=== PATIENT | male | born 1995 | race Caucasian/White ===

== ENCOUNTER 2020-04-03 15:28 | Outpatient (CLI) | payer OTHER ==
--- NOTE | 2020-04-03 17:33 | ULT ---
SOFT TISSUE ULTRASOUND NECK: 04/03/20 INDICATIONS: Neck mass. Directed soft tissue ultrasound of the right neck is performed to assess area of palpable concern. Th ere are enlarged lymph nodes identified in the right neck measuring up to 2.5 cm. Adenopathy is seen in the right supraclavicular region and right axilla. There is also adenopathy in the left supraclavi cular region. IMPRESSION: Evidence of pathologic adenopathy in the areas that are imaged by directed ultrasound. Consider furth er evaluation with CT neck with IV contrast to better characterize cervical adenopathy. POS: PARESH
== END 2020-04-03 15:29 | disposition home or self-care (01) ==
LOC: BICULT 15:28
PROVIDERS: ATTEND Physician Assistant
DX: R22.1 Localized swelling, mass and lump, neck (principal); R59.0 Localized enlarged lymph nodes
CPT/HCPCS: 76536

== ENCOUNTER 2020-04-04 13:05 | Outpatient (CLI) | payer OTHER ==
--- NOTE | 2020-04-04 14:47 | CT ---
EXAM: CT NECK SOFT TISSUE POST CONTRAST: HISTORY:Neck mass. Abnormal ultrasound. CT was recommended. COMPARISON:None CORRELATION:Soft tissue neck ultrasound 04/03/2020 FINDINGS: Brain parenchyma: No pathologic enhancement of the visualized brain parenchyma. Sinuses: Mild mucosal disease of the left maxillary sinus Orbits: Appropriate location of the ocular lenses. Symmetric attenuation the optic nerves and ocular rectus muscles. Retrobulbar fat is preserved. Nasopharynx:Adequate aeration. No mucosal abnormality. Oral cavity:Aerodigestive tract is patent. No mucosal abnormality. Limited evaluation of the oral cav ity due to dental amalgam artifact. Midline fatty raphae of the tongue is preserved. Nonspecific mild fullness of the palatine tonsils. No evidence of adenoid tonsillar hypertrophy. Hypopharynx: No mucosal abnormality. Epiglottis has a normal caliber. Preepiglottic fat is preserved .. Larynx: No mucosal abnormality with regards to the supraglottic, glottic and subglottic larynx. Paraspinal muscles: Symmetric attenuation of the paraspinal muscles and symmetric attenuation of the sternocleidomastoid muscles.. Parotid and salivary glands: Symmetric attenuation of the parotid and submandibular glands Vessels: No significant stenosis. Technique limits evaluation. Thyroid gland: Unremarkable. Spine: Vertebral body height is maintained. No fracture. No significant central canal stenosis or sig nificant neural foraminal narrowing. Limited evaluation due to technique. Lymph nodes: Markedly lymphadenopathy or dominant throughout the right neck. Enlarged right level 1 l ymph node measures 1.8 x 2.0 cm, enlarged right level 5 lymph node measures 2.2 x 3.2 cm, enlarged right supraclavicular lymph node measures 2.3 x 2.4 cm. Additional right and left neck and supraclavi cular lymphadenopathy is noted. Lung apices and upper mediastinum: No acute abnormality. IMPRESSION: 1. Markedly soft tissue neck lymphadenopathy. Primary consideration should be lymphoma until proven o therwise. Metastases from an occult primary cannot be entirely excluded. Ultrasound-guided biopsy can be performed. CODE T
[2020-04-04] MEDS ORDERED: Iopamidol-370 76% 500 ML 1 ML ONE (15:08)
== END 2020-04-04 13:06 | disposition home or self-care (01) ==
LOC: BICCT 13:05
PROVIDERS: ATTEND Physician Assistant
DX: R59.1 Generalized enlarged lymph nodes (principal)
CPT/HCPCS: 70491; Q9967

== ENCOUNTER 2020-04-15 06:59 | Day surgery (SDC) | payer OTHER ==
[2020-04-15] MEDS ORDERED: Tobramycin/Dexamethasone Ophth Oint 3.5 GM TUBE ONE (10:08)
[2020-04-15] MEDS ORDERED: Bacitracin Zinc Ointment 30 gm TUBE ONE (10:08)
[2020-04-15] MEDS ORDERED: Lidocaine 1% w/Epinephrine 1:100K 20 ML VIAL ONE (10:08)
[2020-04-15] MEDS ORDERED: Fentanyl 100 MCG/2 ML VIAL ONE ×2 (10:11→11:52)
[2020-04-15] MEDS ORDERED: Midazolam HCl 2 mg/2 ml Vial ONE (10:11)
[2020-04-15] MEDS ORDERED: Dexamethasone 20 MG/5 ML VIAL ONE (10:48)
[2020-04-15] MEDS ORDERED: Glycopyrrolate 0.2 MG/ML 5 ML SYRINGE ONE (10:48)
[2020-04-15] MEDS ORDERED: Ondansetron PF 4 MG/2 ML Vial ONE (10:48)
[2020-04-15] MEDS ORDERED: Lidocaine 1% PF 5 ML VIAL ONE (10:48)
[2020-04-15] MEDS ORDERED: Ketorolac Tromethamine 30 MG/ML VIAL ONE (10:48)
[2020-04-15] MEDS ORDERED: PROPOFOL 200 MG/20 ML VIAL ONE (10:48)
[2020-04-15] MEDS ORDERED: Rocuronium Bromide 10 MG/ML (10ML VIAL) ONE (10:48)
--- NOTE | 2020-04-15 13:44 | RAD ---
PORTABLE CHEST 1 VIEW: Date: 04/15/2020 Time: 1144 hours HISTORY: Status post lymph node excision. FINDINGS: The heart size is normal. No lobar consolidation, pneumothoraces, or pleural effusions are seen. IMPRESSION: No acute process. POS: AH
--- NOTE | 2020-04-16 14:21 | OP ---
DATE OF PROCEDURE: 04/15/2020 PREOPERATIVE DIAGNOSIS: Diffuse cervical and mediastinal lymphadenopathy. POSTOPERATIVE DIAGNOSIS: Diffuse cervical and mediastinal lymphadenopathy. PROCEDURES: Excisional lymph node biopsy, deep tissue. PERMIT: Procedures, benefits, and risks including those of bleeding, infection, injury from anesthesia, allergic reaction, scarring, damage to surrounding tissue, numbness, and alternatives were reviewed with the patient and family, who expressed understanding of the information. The consent form was signed and witnessed and a paper copy of the consent form is available for review in the paper chart. INDICATIONS: This is a 24-year-old male patient presenting with diffuse neck and mediastinal lymphadenopathy, denying any symptoms, presenting to the clinic with a CT scan showing lymphadenopathy and previous FNA suggestive of lymphoma. However, pathology requires more tissue to confirm diagnosis and subtyping of suggested lymphoma and the patient was brought to the operating room now for operative treatment. ASSISTANTS: None. FINDINGS: Diffuse cervical lymphadenopathy with palpable left-sided lymph node near the clavicle. DESCRIPTION OF OPERATION: The patient was brought to the operating room and laid supine on the operating room table. General endotracheal anesthesia was administered and the left enlarged lymph node was palpated near the clavicle and the area was prepped and draped in sterile fashion. 1% lidocaine with 1:100,000 epinephrine was injected over the mass and a marking pen was used to identify the largest lateral aspect of the mass and designed an incision parallel with the natural fold and skin creases. A 15 blade scalpel was used to make an incision through the epidermis and dermis down to the subcutaneous tissue and then Bovie electrocautery on a setting of 15 was then used to incise the subcutaneous tissue down through the platysma. After this incision was made, there was still a significant amount of subcutaneous fat overlying the mass, which was divided with blunt dissection with the use of a curved gently and bipolar electrocautery on a setting of 15 to divide the tissue overlying the mass and dissect down to the deep tissue space. Once the mass was seen and palpated, blunt dissection was used to remove the fibrous desmoplastic tissue around the mass, which was significant and adherent and significant time was used to dissect this tough tissue from surrounding the mass, which was significantly more than would be expected given the patient's presentation. Small vessels were cauterized with bipolar electrocautery and once the mass was dissected free superficially and circumferentially, a Guy was then placed on the surrounding fascial tissue of the mass and then blunt dissection again was used to dissect the deep tissue clear. Once this was dissected clear, the wound was then irrigated and then the deep space was closed in multiple layers with 4- 0 Vicryl deep stitches and then a buried subcutaneous stitch in the deep aspect of the dermis was then used to close and ligia the skin edges and then a superficial running continuous 4-0 Prolene was then used to close the skin edges together. Afterwards, bacitracin was placed on the wound and the patient was turned over to Anesthesia for emergence and the dissected mass, which was roughly 4-5 cm in diameter was sent fresh for lymphoma studies. Job ID: [id number] [facility]
== END 2020-04-15 13:50 | disposition home or self-care (01) ==
LOC: SDC 06:59
PROVIDERS: ATTEND Student in an Organized Health Care Education/Training Program
PROC: 07B20ZZ Excision of Left Neck Lymphatic, Open Approach (ICD-10-PCS; principal; 2020-04-15)
DX: C81.90 Hodgkin lymphoma, unspecified, unspecified site (principal); F41.9 Anxiety disorder, unspecified; F32.9 Major depressive disorder, single episode, unspecified; G47.30 Sleep apnea, unspecified
CPT/HCPCS: 71045; 88184; 88305; 88341; 88342; J1100; J1885; J2250; J2405; J2704; J3010

== ENCOUNTER 2020-04-29 08:22 | Outpatient (CLI) | payer OTHER ==
--- NOTE | 2020-04-29 11:01 | PET ---
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 Initial staging" COMPARISON: none TECHNIQUE: IV injection of F-18 fluorodeoxyglucose (FDG) dose: 12.1 mCi. PET scan and attenuation correction CT performed from skull base to proximal thighs. PET scan and attenuation correction CT thinner slices performed through head and neck. FINDINGS: SUV (standard uptake values) numbers given are maximum SUVs. QCLR used. Large number of bilateral the abnormally shaped and significantly enlarged cervical lymph nodes, righ t side significantly worse than left, involving levels 2, 3, 4, and 5, as well as unnamed lymph nodes. The following are some examples. 2.7 x 2.1 cm node abutting the tail of the right parotid gland and abutting the superior anterior lat eral surface of right sternocleidomastoid muscle. SUV 19.5. Slightly inferior to that, a 1.8 x 2.0 cm lateral superficial node with SUV 19.4. 1.4 x 1.3 cm right level 2A node SUV 15.0. 3.5 x 2.1 cm right level 5 lymph node SUV 9.9. 2.4 x 2.5 cm right far lateral supraclavicular level 5 node SUV 9.8. 1 x 1 cm left level 5A node SUV 4.8. Left level 5B supraclavicular 3 x 1.8 cm node SUV 8.1. A large number of far posterior bilateral lymph nodes at cervical thoracic junction including level 5 B nodes and additional nodes between bilateral shoulder muscles. For example, a 1.5 cm node close to the right scapula with SUV 13.1. The largest right axillary lymph node is the most lateral one, 5.9 x 3.6 cm, SUV 20.5. Inferior and medial to that, a 3 x 3.5 cm right axillary lymph node SUV 18.6. 2 x 1.5 cm lymph node adjacent to the posterior lateral edge of right shoulder muscles with SUV 16.4. No hypermetabolic left axillary lymph nodes. Multiple enlarged mediastinal lymph nodes. Some examples: 2 x 1.5 cm node between superior vena cava and right mainstem bronchus SUV 17.2. 1.5 x 1.5 cm right paratracheal node SUV 16.2. Left-sided 2 x 1 cm prevascular space node SUV 4.4. No hypermetabolic hilar lymph nodes. No hypermetabolic activity in the abdomen or pelvis. Specifically no involvement of the spleen. Most of the most prominent lymph nodes are Deauville criteria score 5. IMPRESSION: 1) Hodgkin's lymphoma Lugano classification stage II: 2) a large number of malignant cervical, axillary, and some mediastinal lymph nodes involved, right s nabil much greater than left. No activity caudal to the diaphragm.
== END 2020-04-29 08:23 | disposition home or self-care (01) ==
LOC: PET 08:22
PROVIDERS: ATTEND Internal Medicine Hematology & Oncology
DX: C81.11 Nodular sclerosis Hodgkin lymphoma, lymph nodes of head, face, and neck (principal)
CPT/HCPCS: 78815; A9552

== ENCOUNTER 2020-05-06 20:16 | Inpatient (IN) | payer OTHER ==
[2020-05-06 21:12] LABS: #Basophils 0.1 thou/uL (0.0-0.2); #Eosinphils 0.2 thou/uL (0.0-0.7); #Lymphocytes 1.2 thou/uL (1.20-3.40); #Monocytes 2.1 thou/uL (0.11-0.59); #Neutrophils 14.7 thou/uL (1.40-6.50); %Basophils 0.6 % (0.0-1.0); %Eosinophils 1.1 % (0.0-10.0); %Lymphocytes 6.5 % (21.0-51.0); %Monocytes 11.2 % (0.0-10.0); %Neutrophils 80.6 % (42.0-75.0); Hemoglobin 14.9 g/dL (14.0-18.0); Mean Corpuscular HGB CONC 32.6 g/dL (32.0-36.0); Mean Corpuscular Volume 83.1 fL (78.0-98.0); Mean Platelet Volume 8.1 fL (7.4-10.4); Platelet Count 314 thou/uL (130-400); RBC Distribution Width 13.9 % (11.5-14.5); Red Blood Cell (RBC) Count 5.49 mill/uL (4.70-6.10); White Blood Cell (WBC) Count 18.3 thou/uL (4.8-10.8)
[2020-05-06 21:13] LABS: Bilirubin 2+ (Negative); Blood, Urine Negative (Negative); Clarity Clear (Clear); Glucose, Urine (Dipstick) Normal (Negative); Ketone, Urine 20 mg/dL (Negative); Leukocyte 250 Leu/uL (Negative); Nitrite Negative (Negative); Protein, Urine (Dipstick) 20 mg/dL (Neg-Trace); RBC/HPF 0-3 HPF (0-3); Specific Gravity, Urine 1.011 (1.002-1.036); Squamous Epithelial 0-3 HPF (0-3); WBC/HPF 21-50 HPF (0-3)
[2020-05-06 21:21] LABS: Bacteria/HPF Rare-Few HPF (None Seen)
[2020-05-06 21:34] LABS: ALT (SGPT) 123 U/L (8-55); AST (SGOT) 75 U/L (5-34); Albumin 3.7 g/dL (3.5-5.0); Alkaline Phosphatase 232 U/L (40-110); Anion Gap 15 mmol/L (10-20); BUN (Urea Nitrogen) 6 mg/dL (8.9-20.6); Bilirubin, Total 4.6 mg/dL (0.2-1.2); Calc. Creatinine Clearance 0 mL/min (70-130); Calcium 9.3 mg/dL (7.8-10.44); Carbon Dioxide 26 mmol/L (22-29); Chloride 96 mmol/L (98-107); Globulin 4.3 g/dL (2.4-3.5); Glucose 118 mg/dL (70-105); Potassium 3.3 mmol/L (3.5-5.1); Sodium 134 mmol/L (136-145)
[2020-05-06] MEDS ORDERED: cefTRIAXone\\ROCEPHIN 2 GM VIAL ONE (22:55)
[2020-05-06 23:22] LABS: CK (CPK) 241 U/L (30-200); Lipase 112 U/L (8-78)
[2020-05-07] MEDS ORDERED: Ondansetron PF 4 MG/2 ML Vial IVP PRN (01:40)
--- NOTE | 2020-05-07 02:33 | HP ---
REASON FOR ADMISSION: Nausea, vomiting. HISTORY OF PRESENT ILLNESS: This is a 24-year-old male patient who was recently diagnosed with Hodgkin's lymphoma, is scheduled to start chemotherapy soon. Has been having nausea and vomiting for the past 4 days, but denies abdominal pain. Denies fevers or chills. He does note some dysuria. He has been urinating a lot because he has been drinking a lot of water today. He had 1 single episode of moderate amount of diarrhea. He presents to the ER because of his continuous nausea, vomiting, and inability to take anything orally. The patient was recently diagnosed with Hodgkin's lymphoma. He had 10 pounds of weight loss, also had a nodule in the right supraclavicular area. A biopsy done revealed Hodgkin's lymphoma. He did then undergo a CT of the abdomen and a PET scan that showed large number of malignant cervical, axillary, and some mediastinal lymph nodes. PAST MEDICAL HISTORY: UTI. FAMILY HISTORY: Reviewed, found to be noncontributory. ALLERGIES: NO NOTE OF ANY DRUG ALLERGY. REVIEW OF SYSTEMS: All systems reviewed and except the above mentioned, found to be negative. PHYSICAL EXAMINATION: GENERAL: Awake, alert, oriented, does not appear in distress. VITAL SIGNS: His blood pressure is 139/81, heart rate of 79, saturating 96% on room air. HEENT: Head is nontraumatic, normocephalic. Pupils equal, reactive. Extraocular movements are intact. Nonicteric sclerae. Well-injected conjunctivae. Oral mucosa normal. Nasal mucosa normal. NECK: Supple. No adenopathy. No murmur. Thyroid is not palpable. Trachea is midline. No supraclavicular adenopathy. HEART: S1, S2 regular. No murmur. No gallop. No friction rubs. No displacement of PMI. LUNGS: Clear to auscultation bilaterally. No wheezes, rhonchi, or crackles. ABDOMEN: Bowel sounds are positive. Nontender abdomen. No hepatosplenomegaly. EXTREMITIES: No lower extremity edema. No cyanosis. NEUROLOGIC: Cranial nerves 2-12 within normal limits. Normal motor function. Normal sensory function. Normal reflexes. LABORATORY DATA: Blood work shows WBC of 18.3, hemoglobin of 14.8, platelets of 314, neutrophil count 80.6%, lymphocyte count 6.5%. D-dimer 1.25. Sodium 134, potassium 3.3, bicarb of 26, BUN 6, creatinine 1.03. AST 75, previously 22; ALT 123, previous 21; alkaline phosphatase 232, previously 3 weeks ago it was 73. CK 241. Lipase is 112. Chest x-ray per my read shows no acute disease. ASSESSMENT AND PLAN: This is a 24-year-old male patient, recently diagnosed with Hodgkin's lymphoma, presenting with nausea, vomiting for the past 4 days. His urinalysis does reflect evidence of an infection. He did have UTI in the past. His LFTs are slightly elevated. His lipase is slightly elevated, but on examination, he does not have any abdominal pain on palpation nor as a symptom. GI: The patient will be on clear-liquid diet. Will be provided with IV antiemetics on as-needed basis. We will recheck his LFTs and lipase in a.m. after hydrating him with IV fluids. For his UTI, we will start him on IV Rocephin. Awaiting urine culture results and sensitivity. For DVT prophylaxis, he will be on SCDs. Job ID: [id number]
[2020-05-07 02:37] VITALS: BMI 51.1
[2020-05-07] MEDS: Sodium Chloride 0.9% 1,000 ML IV SCH ×3 (03:06→21:57)
[2020-05-07 06:47] LABS: Hemoglobin 12.6 g/dL (14.0-18.0); Mean Corpuscular HGB CONC 32.8 g/dL (32.0-36.0); Mean Corpuscular Hemoglobin 27.4 pg (27.0-31.0); Mean Corpuscular Volume 83.6 fL (78.0-98.0); Mean Platelet Volume 8.3 fL (7.4-10.4); Platelet Count 293 thou/uL (130-400); RBC Distribution Width 13.7 % (11.5-14.5); White Blood Cell (WBC) Count 15.7 thou/uL (4.8-10.8)
[2020-05-07 06:54] LABS: ALT (SGPT) 102 U/L (8-55); AST (SGOT) 61 U/L (5-34); Albumin 3.1 g/dL (3.5-5.0); Alkaline Phosphatase 197 U/L (40-110); Anion Gap 14 mmol/L (10-20); BUN (Urea Nitrogen) 5 mg/dL (8.9-20.6); Bilirubin, Total 3.8 mg/dL (0.2-1.2); Calc. Creatinine Clearance 356 mL/min (70-130); Calcium 8.6 mg/dL (7.8-10.44); Carbon Dioxide 24 mmol/L (22-29); Chloride 100 mmol/L (98-107); Globulin 3.8 g/dL (2.4-3.5); Glucose 103 mg/dL (70-105); Lipase 154 U/L (8-78); Potassium 3.5 mmol/L (3.5-5.1); Protein, Total 6.9 g/dL (6.0-8.3); Sodium 134 mmol/L (136-145)
--- NOTE | 2020-05-07 07:06 | RAD ---
SINGLE VIEW CHEST: Date: 05/06/2020 COMPARISON: 04/15/2020 and PET/CT 04/29/2020. HISTORY: Cough and fever. Nodular sclerosis classical Hodgkin's lymphoma. FINDINGS: Single view of the chest shows a normal sized cardiomediastinal silhouette. There is no evidence of c onsolidation, mass, or pleural effusion. The bones are unremarkable. IMPRESSION: No evidence of acute cardiopulmonary disease. POS: EAA
[2020-05-07 07:57] LABS: Band 8 % (5-11); Eosinophils 1 % (0-10); Lymphocytes 9 % (21-51); MDiff Complete? YES; Monocytes 6 % (0-10); Neutrophil 76 % (42-75); Platelet Morphology Comment Appears Adequate; Polychromasia SLIGHT = 2-3 cells (100X) (0-2/hpf)
[2020-05-07] MEDS ORDERED: Morphine 2 MG/ML VIAL SLOW IVP PRN (12:15)
[2020-05-07 16:20] LABS: Acetaminophen Less than 6.0 mcg/mL (10.0-30.0); Alcohol Less than 10 mg/dL (Less than 10); Salicylate Less than 8.0 mg/dL (15.0-30.0)
[2020-05-07 16:42] LABS: HBCM Index 0.22 S/CO (0-0.79); HBSAg Index 0.27 S/CO (0-0.99); Hep A IgM AB Non-Reactive (NonReactive); Hep A IgM S/CO 0.18 S/CO (0-0.79); Hep B Surf Ag Non-Reactive S/CO (NonReactive); Hep C IgG Ab Non-Reactive (NonReactive); Hep C Index 0.09 S/CO (0-0.79); Hepatitis B Core IgM Abs Non-Reactive (NonReactive)
[2020-05-07 16:43] LABS: Amphetamine Not Detected (NotDetected); Barbiturates Screen Not Detected (NotDetected); Benzodiazepine Screen Not Detected (NotDetected); Cocaine Metabolite Screen Not Detected (NotDetected); Medtox Control Line Valid? VALID (VALID); Medtox Reader # READER 4; Methadone Not Detected (NotDetected); Methamphetamine Not Detected (NotDetected); Opiate Screen Not Detected (NotDetected); Oxycodone Screen Not Detected (NotDetected); Phencyclidine (PCP) Not Detected (NotDetected); THC/Cannabinoid Screen Not Detected (NotDetected); Tricyclic Screen Not Detected (NotDetected)
--- NOTE | 2020-05-07 17:29 | ULT ---
RIGHT UPPER QUADRANT ABDOMINAL ULTRASOUND: 05/07/20 COMPARISON: CT abdomen/pelvis 04/25/20. HISTORY: Abnormal LFTs. TECHNIQUE: Multiplanar rogers scale and color Doppler images were obtained in a right upper quadrant abdominal ult rasound. FINDINGS: The liver is enlarged with slight increased echogenicity. No intrahepatic biliary dilatation or focal liver lesions are seen. The gallbladder is contracted and there is a questionable calcification in t he gallbladder neck. The common bile duct is normal in caliber measuring 4 mm. Limited visualization of the pancreas is unremarkable. The right kidney is normal in echogenicity wit hout focal lesions, hydronephrosis or calculi and measures 13.2 cm in length. IMPRESSION: 1. Possible cholelithiasis. 2. Fatty liver. POS: [facility]
[2020-05-07] MEDS ORDERED: Ketorolac Tromethamine 30 MG/ML VIAL IVP SCH (20:15)
[2020-05-07] MEDS ORDERED: Acetaminophen 500 MG TAB PO SCH (20:15)
[2020-05-07] MEDS: cefTRIAXone\\ROCEPHIN 1 GM in Sodium Chloride 0.9% 100 ML IVPB SCH (22:54)
[2020-05-08 05:27] LABS: ALT (SGPT) 89 U/L (8-55); AST (SGOT) 56 U/L (5-34); Alkaline Phosphatase 187 U/L (40-110); Anion Gap 12 mmol/L (10-20); BUN (Urea Nitrogen) 5 mg/dL (8.9-20.6); Bilirubin, Total 3.9 mg/dL (0.2-1.2); Calc. Creatinine Clearance 347 mL/min (70-130); Calcium 8.7 mg/dL (7.8-10.44); Carbon Dioxide 24 mmol/L (22-29); Chloride 102 mmol/L (98-107); Globulin 3.9 g/dL (2.4-3.5); Glucose 84 mg/dL (70-105); Potassium 3.4 mmol/L (3.5-5.1); Protein, Total 6.9 g/dL (6.0-8.3); Sodium 135 mmol/L (136-145)
[2020-05-08 05:34] LABS: Band 4 % (5-11); Eosinophils 3 % (0-10); Hemoglobin 13.1 g/dL (14.0-18.0); Lymphocytes 8 % (21-51); MDiff Complete? YES; Mean Corpuscular HGB CONC 32.5 g/dL (32.0-36.0); Mean Corpuscular Hemoglobin 27.6 pg (27.0-31.0); Mean Corpuscular Volume 84.7 fL (78.0-98.0); Mean Platelet Volume 8.2 fL (7.4-10.4); Monocytes 8 % (0-10); Neutrophil 77 % (42-75); Platelet Count 287 thou/uL (130-400); Platelet Morphology Comment Appears Adequate; RBC Distribution Width 13.9 % (11.5-14.5); RBC Morphology Normal; Red Blood Cell (RBC) Count 4.75 mill/uL (4.70-6.10); White Blood Cell (WBC) Count 17.3 thou/uL (4.8-10.8)
[2020-05-08] MEDS: Acetaminophen 325 MG TAB PO PRN ×3 (05:46→23:55)
[2020-05-08] MEDS ORDERED: Potassium Chloride 20 MEQ TAB PO SCH (07:00)
--- NOTE | 2020-05-08 13:37 | CON ---
DATE OF CONSULTATION: 05/08/2020 REQUESTING PHYSICIAN: Tim Cook MD HISTORY OF PRESENT ILLNESS: This is a 24-year-old morbidly obese man who was recently diagnosed with Hodgkin lymphoma. He is currently pending treatment. The patient was admitted yesterday with approximately 1-week history of postprandial nausea and epigastric fullness and occasionally pain, which does not radiate. He denies any fevers or chills. He has had one bout of loose bowel movement. PAST MEDICAL HISTORY: Pertinent for: 1. Recently diagnosed lymphoma. 2. Urinary tract infection. SURGICAL HISTORY: The patient denies any previous surgeries except for excision of lymph node on his neck. SOCIAL HISTORY: He denies any cigarette smoking, ethanol, or illicit drug abuse. PREHOSPITALIZATION MEDICATIONS: None. ALLERGIES: THE PATIENT DENIES ANY KNOWN DRUG ALLERGIES. REVIEW OF SYSTEMS: Ten-point review of systems essentially unremarkable except for stated in past medical history and chief complaint. PHYSICAL EXAMINATION: GENERAL: A 24-year-old morbidly obese man with a BMI of 51.1, who is in no acute distress at the time of my evaluation. VITAL SIGNS: Blood pressure 130/84, pulse 90, respiratory rate is 12, maximum temperature in the last 24 hours is 100.1 degrees Fahrenheit, and oxygen saturation is 95% on room air. HEENT: Pupils equally round and reactive to light and accommodation. He has no scleral icterus present. HEART: Regular rate and rhythm. No murmurs or gallops auscultated. LUNGS: Clear to auscultation bilaterally. Breathing, regular and nonlabored. ABDOMEN: Soft and obese with epigastric tenderness to palpation. Liver and spleen otherwise nonpalpable below costal margin. NEUROLOGIC: No focal deficits present. LABORATORY FINDINGS: Today include a CBC with 17,300 white blood cells, hemoglobin and hematocrit 13.1 and 40.2 respectively, and platelet count is 287,000. Metabolic profile: Sodium 135, potassium 3.4, chloride is 102, bicarb is 24, BUN is 5, creatinine 0.78, and glucose is 84. Total bilirubin is 3.9, AST and ALT are 56 and 89 respectively, alkaline phosphatase is 187, and serum lipase 152. I have personally reviewed the radiographic studies including abdominal ultrasound, which was obtained yesterday and this reveals a fatty liver as well as a contracted gallbladder with what appears to be gallstone in the gallbladder neck with acoustic shadowing. Common bile duct is normal in diameter for this patient's age at 4.2 mm. IMPRESSION: 1. Acute cholecystitis with cholelithiasis and probable choledocholithiasis. 2. Mild gallstone pancreatitis. RECOMMENDATIONS: Laparoscopic cholecystectomy with intraoperative cholangiogram. I have informed the patient of the above findings and recommendation. I have also advised the patient of the risks and benefits of the proposed surgery to include, but not limited to bleeding, infection, injury to bile duct or surrounding structures. This information was given to the patient in the presence of trauma PA, Rip Concepcion. The patient indicates understanding the information provided. I have answered his questions. He has granted consent for this operative intervention. I have also been asked by Oncology [facility]. Thank you again, Dr. Cook, for allowing me the opportunity to participate in the care of this patient. Job ID: [id number]
[2020-05-08] MEDS ORDERED: HYDROcodone/Acetaminophen 5/325 mg Tablet PO PRN ×2 (14:16)
--- NOTE | 2020-05-08 14:18 | CON ---
DATE OF CONSULTATION: 05/08/2020 CHIEF COMPLAINT: Cough after eating which leads to gagging and then vomiting. HISTORY OF PRESENT ILLNESS: Mr. Fitch is a 24-year-old man who first noticed lymphadenopathy around his neck in November. Around 3 weeks ago, he had an excisional lymph node biopsy and was diagnosed with Hodgkin lymphoma and he is planning to start chemotherapy for this. Over the last week, he has developed a cough which occurs starting about 10 minutes after eating. The coughing then leads to gagging and then vomiting. Associated with this, he has had a 10-pound weight loss. He does a little better with liquids and he does with solids. He does not feel like his food gets obviously stuck in his chest as he is swallowing, but the cough really starts about 10 minutes after eating. He does have mediastinal lymphadenopathy as well with his lymphoma. He has no abdominal pain. No nausea as long as he is not gagging from coughing. In the emergency room, he was noted to have elevated liver tests, and he had an ultrasound performed on his abdomen in light of the vomiting and elevated liver tests, which showed evidence of fatty liver and possible cholelithiasis. He has been on no medications at home prior to admission. No prior known problems with his liver. PAST MEDICAL HISTORY: Recent diagnosis of Hodgkin lymphoma. PAST SURGICAL HISTORY: Recent excisional lymph node biopsy. FAMILY HISTORY: Negative for GI malignancy. SOCIAL HISTORY: Occasional alcohol use. No drugs. No smoking. ALLERGIES: NO KNOWN DRUG ALLERGIES. MEDICATIONS: Prior to admission, none. REVIEW OF SYSTEMS: Negative x10 systems reviewed except as stated in History of Present Illness. PHYSICAL EXAMINATION: VITAL SIGNS: Temperature 99.1, pulse 90, and blood pressure 130/84. GENERAL: He is in no acute distress. Alert and oriented x3. HEENT: Eyes have no scleral icterus. Oropharynx is clear without lesions. No cervical or supraclavicular lymphadenopathy. LUNGS: Clear to auscultation bilaterally. HEART: Regular rate and rhythm without murmur. ABDOMEN: Soft, nontender, and nondistended. Bowel sounds are present. EXTREMITIES: No lower extremity edema. NEUROLOGIC: Cranial nerves are grossly intact. LABORATORY DATA: White blood cell count 17.3, hemoglobin 13.1, and platelets 287. Creatinine 0.78, bilirubin 3.9, AST 56, ALT 89, alkaline phosphatase 187. Initial labs 2 days ago, his bilirubin was 4.6 with an alkaline phosphatase of 232. His albumin is 3.0, lipase 152. IMAGING: He had a PET scan on 04/29/2020, which showed multiple cervical and axillary and some mediastinal nodes. There is no activity below the diaphragm. Ultrasound of the abdomen yesterday showed possible cholelithiasis with a contracted gallbladder and a questionable calcification in the gallbladder neck. He was noted to have fatty liver. He had a CT scan of the chest, abdomen, and pelvis on 04/25/2020, which again showed the lymph nodes in the upper mediastinum and supraclavicular cervical regions. The liver and bile ducts were reported as normal at that time. From his ultrasound yesterday, the common bile duct measured 4 mm. IMPRESSION: 1. Postprandial cough which causes him to gag and then vomit. He does not have ongoing nausea other than the gagging that occurs from the cough. Cough however only occurs about 10 minutes after eating. This could indicate that he had some aspiration with swallowing or he could have food this being retained in his esophagus and then causes some aspiration or cough with reflux or failure to progressive food bolus, which follows actual swallowing event and delayed. 2. Weight loss secondary to the above symptoms. 3. Possible cholelithiasis. He does not have any abdominal pain and his nausea is not really secondary to the eating, but the nausea seems to occur related to actually gagging from the cough. None of these symptoms would really suggest that the gallbladder is a primary source for the above process. 4. Abnormal liver tests. He does have primarily cholestatic and mixed hepatocellular injury pattern. He is on no medications at baseline to explain this. We will still need to consider a biliary source. However, his bile duct only measured 4 mm and his symptoms do not really suggest a biliary source. He does have a question of fatty infiltration of the liver and lymphoma and I think that an MRCP might be helpful to better evaluate his bile ducts. 5. Mild elevation of the lipase, but less than 3 times upper limit of normal, no abdominal pain. He does not meet diagnostic criteria for acute pancreatitis. RECOMMENDATIONS: 1. Barium esophagogram for postprandial cough leading to gagging and vomiting. If this is negative, then a modified barium swallow with speech pathology might also be considered. If there is evidence of an esophageal stricture or esophageal dysmotility, then this should be evaluated further with endoscopy. 2. I will also plan to follow through with [facility]. Job ID: [id number] [facility]
--- NOTE | 2020-05-08 14:47 | PDOC.HOSPP ---
- Subjective Encounter Date: 05/08/20 Encounter Time: 07:00 Subjective: Patient seen for follow-up regarding cholelithiasis. Reports nausea and vomiting are better. - Objective Vital Signs & Weight: Vital Signs (12 hours) Temp Pulse Resp BP Pulse Ox 05/08/20 11:31 99.1 F 90 12 130/84 95 05/08/20 10:18 97.6 F 85 14 113/72 94 L 05/08/20 07:50 92 L 05/08/20 05:41 99.9 F H 05/08/20 04:00 100.1 F H 92 18 117/77 92 L Weight Admit Weight 377 lb Weight 377 lb I&O: 05/07/20 05/08/20 05/09/20 06:59 06:59 06:59 Intake Total 3138 400 Balance 3138 400 Result Diagrams: 05/08/20 04:47 05/08/20 04:47 Additional Labs: I reviewed patient's labs and MAR Hospitalist ROS - Review of Systems Constitutional: denies: fever, chills, sweats, weakness, malaise Cardiovascular: denies: chest pain, palpitations, orthopnea, paroxysmal noc. dyspnea, edema, light headedness Gastrointestinal: denies: nausea, vomiting, abdominal pain, diarrhea, constipation, melena, hematochezia Genitourinary: denies: dysuria, frequency, incontinence, hematuria, retention Musculoskeletal: denies: neck pain, shoulder pain, arm pain, back pain, hand pain, leg pain, foot pain Skin: reports: jani - Medication Medications: Active Medications Generic Name Dose Route Start Last Admin Trade Name Perryq PRN Reason Stop Dose Admin Acetaminophen 650 mg 05/07/20 19:59 05/08/20 13:54 Acetaminophen 325 Mg Tab PO 650 mg Q4H PRN Administration Headache/Fever or Mild Pain Ceftriaxone Sodium 1 gm/ 100 mls @ 200 mls/hr 05/07/20 23:00 05/07/20 22:54 Sodium Chloride IVPB 100 mls Q24HR SUZE Administration Sodium Chloride 1,000 mls @ 75 mls/hr 05/07/20 02:00 05/07/20 21:57 Normal Saline 0.9% IV 1,000 mls .[id number] SUZE Administration Morphine Sulfate 2 mg 05/07/20 12:15 05/07/20 12:23 Morphine 2 Mg/Ml Vial SLOW IVP 2 mg Q4H PRN Administration Pain Sodium Chloride 10 ml 05/08/20 09:00 05/08/20 07:55 Flush - Normal Saline 10 Ml Syringe IVF 10 ml Q12HR SUZE Administration - Exam General Appearance: awake alert Eye: scleral icterus ENT: normocephalic atraumatic Neck: supple, symmetric, no thyromegaly, no lymphadenopathy Heart: RRR, no gallops, no rubs, normal peripheral pulses Respiratory: CTAB Gastrointestinal: soft, non-tender, normal bowel sounds, no guarding, no rigidity Skin: no rashes Psychiatric: normal affect, normal behavior, oriented to person, oriented to place, oriented to time Hosp A/P (1) Cholelithiasis Code(s): K80.20 - CALCULUS OF GALLBLADDER W/O CHOLECYSTITIS W/O OBSTRUCTION St atus: Acute (2) Abnormal liver function tests Code(s): R94.5 - ABNORMAL RESULTS OF LIVER FUNCTION STUDIES Status: Acute (3) Lymphoma Status: Acute (4) Morbid obesity Code(s): E66.01 - MORBID (SEVERE) OBESITY DUE TO EXCESS CALORIES Status: Chronic (5) Nausea and vomiting Code(s): R11.2 - NAUSEA WITH VOMITING, UNSPECIFIED Status: Resolved - Plan continue antibiotics, out of bed/ambulate, DVT proph w/SCDs Consult general surgery for possible cholecystectomy. Consult GI regarding abnormal LFTs. Patient has clinically improved. Trend LFTs.
--- NOTE | 2020-05-08 15:57 | RAD ---
DOUBLE CONTRAST ESOPHAGRAM INDICATION: Dysphagia Fluoroscopic time: 1.1 minute TECHNIQUE: Thin barium, thick barium and effervescent crystals were utilized for double contrast esop hagram. FINDINGS: Distribution Specialist image: No acute abnormality seen. Esophagram: The esophagus demonstrated normal mucosal pattern, contour and motility. No intraluminal mass or stricture is identified. The patient had moderate reflux during Valsalva maneuvers. The 12.5 mg barium tablet passed without difficulty. IMPRESSION: 1. Moderate gastroesophageal reflux. 2. No intraluminal mass, stricture or gross mucosal abnormality seen involving the esophagus.
[2020-05-08] MEDS: Sodium Chloride 0.9% 1,000 ML IV SCH (18:08)
--- NOTE | 2020-05-08 19:45 | CON ---
DATE OF CONSULTATION: REASON FOR CONSULT: Hodgkin lymphoma. HISTORY OF PRESENT ILLNESS: Mr. Fitch is a pleasant 24-year-old gentleman who has stage 2b classic Hodgkin lymphoma. He was diagnosed at the beginning of April. He had a recent PET scan, which showed no evidence of non-anali disease and all disease was above the diaphragm. He had bilateral cervical, bilateral supraclavicular, right axillary, and mediastinal lymphadenopathy. He had a lymph node posterior to the right scapula. He had an consultation with Dr. Sosa earlier this week in anticipation of MediPort placement. Over the last several days, he had nausea and vomiting. He presented to the emergency room for evaluation. Abdominal ultrasound showed cholelithiasis. He was admitted for further treatment. The patient has been having B type symptoms with hot flashes. He has had 60-pound weight loss over the last several months, although he did have some dietary changes, likely contributing to the weight loss. He was seen at bedside with his family member present. He is complaining of significant back pain and lymph node throbbing. Denies nausea at this time. PAST MEDICAL HISTORY: 1. Newly diagnosed stage B of nodular sclerosis classic Hodgkin lymphoma. 2. Morbid obesity. PAST SURGICAL HISTORY: Lymph node biopsy. ALLERGIES: NO KNOWN DRUG ALLERGIES. HOME MEDICATIONS: Ibuprofen. FAMILY HISTORY: No history of Hodgkin lymphoma. SOCIAL HISTORY: Single. No children. Lives alone. Chews tobacco. No alcohol or illicit drug use. REVIEW OF SYSTEMS: A 12-point review of systems is negative except for noted in HPI. PHYSICAL EXAMINATION: VITAL SIGNS: Temperature is 99.1, pulse is 90, respiratory rate 12, blood pressure is 130/84, he is 95% on room air. GENERAL: A well-developed, well-nourished male, in no acute distress. HEENT: Normocephalic, atraumatic. Pupils are equal and reactive to light. NECK: He has diffuse right cervical and supraclavicular lymphadenopathy. He has left posterior cervical lymphadenopathy. LUNGS: Clear. CV: Regular rate and rhythm. ABDOMEN: Obese. Bowel sounds are positive. EXTREMITIES: No clubbing or cyanosis. SKIN: No rash. LYMPH: He also has bilateral axillary lymphadenopathy with his right greater than his left. NEUROLOGIC: Nonfocal. PERTINENT LABORATORY DATA AND X-RAYS: WBCs are 17.3, hemoglobin 13.1, hematocrit 40.2, platelet count is 287,000, 77% neutrophils, 4% bands, 8% lymphocytes. Sodium 135, potassium 3.4, chloride 102, CO2 is 24, BUN is 5, creatinine 0.78, calcium 8.7, bilirubin 3.9, AST is 56, ALT is 89, alkaline phosphatase is 187. Creatine kinase is 241. Serum total protein 6.9, albumin 3, globulin 3.9, lipase 152. Urine was positive for bilirubin, leukocyte esterase. Hepatitis B panel negative. Abdominal ultrasound showed cholelithiasis. ASSESSMENT: 1. Newly diagnosed Hodgkin lymphoma. 2. Acute cholecystitis. DISCUSSION: The patient has been seen by General Surgery and is planning a laparoscopic cholecystectomy tomorrow. He is complaining of back pain and he has been having throbbing of his lymphadenopathy. I will add [place] to his regimen. I have asked Surgery to place a MediPort for outpatient chemotherapy. The patient is wanting a second opinion from [facility], which was scheduled for today. The appointment will be rescheduled once he is in the outpatient setting, although I did encourage him to start chemotherapy treatment as soon as possible. All questions were answered. Case has been discussed with Dr. William and Dr. Montemayor. Thank you for the consult. Job ID: [id number] [facility]
[2020-05-08] MEDS: cefTRIAXone\\ROCEPHIN 1 GM in Sodium Chloride 0.9% 100 ML IVPB SCH (22:43)
[2020-05-08] MEDS ORDERED: diphenhydrAMINE 50 MG/ML VIAL IVP SCH (22:45)
[2020-05-09] MEDS: Sodium Chloride 0.9% 1,000 ML IV SCH ×2 (04:15→21:15)
[2020-05-09 06:43] LABS: ALT (SGPT) 89 U/L (8-55); AST (SGOT) 50 U/L (5-34); Albumin 3.5 g/dL (3.5-5.0); Alkaline Phosphatase 205 U/L (40-110); Anion Gap 18 mmol/L (10-20); BUN (Urea Nitrogen) 5 mg/dL (8.9-20.6); Bilirubin, Total 3.6 mg/dL (0.2-1.2); Calc. Creatinine Clearance 282 mL/min (70-130); Calcium 9.4 mg/dL (7.8-10.44); Carbon Dioxide 22 mmol/L (22-29); Chloride 102 mmol/L (98-107); Globulin 4.6 g/dL (2.4-3.5); Glucose 72 mg/dL (70-105); Lipase 234 U/L (8-78); Potassium 3.5 mmol/L (3.5-5.1); Protein, Total 8.1 g/dL (6.0-8.3); Sodium 138 mmol/L (136-145)
[2020-05-09] MEDS ORDERED: Ondansetron HCl/PF 4 MG/2 ML Vial IVP PRN ×2 (07:54→11:45)
[2020-05-09] MEDS ORDERED: Promethazine HCl 25 MG/ML VIAL SLOW IVP PRN ×2 (07:54→11:45)
[2020-05-09] MEDS ORDERED: Promethazine HCl 25 MG/ML VIAL IM PRN ×3 (07:54→11:45)
[2020-05-09] MEDS ORDERED: Meperidine HCl/PF 25 MG/ML VIAL SLOW IVP PRN ×2 (07:54→11:45)
[2020-05-09 08:00] LABS: Band 7 % (5-11); Eosinophils 1 % (0-10); Hemoglobin 14.2 g/dL (14.0-18.0); Lymphocytes 12 % (21-51); MDiff Complete? YES; Mean Corpuscular HGB CONC 32.6 g/dL (32.0-36.0); Mean Corpuscular Hemoglobin 27.3 pg (27.0-31.0); Mean Corpuscular Volume 83.5 fL (78.0-98.0); Mean Platelet Volume 9.4 fL (7.4-10.4); Monocytes 4 % (0-10); Neutrophil 71 % (42-75); Platelet Count 355 thou/uL (130-400); Platelet Morphology Comment Appears Adequate; Polychromasia SLIGHT = 2-3 cells (100X) (0-2/hpf); RBC Distribution Width 14.1 % (11.5-14.5); Reactive Lymphocytes 5 % (0-10); White Blood Cell (WBC) Count 28.2 thou/uL (4.8-10.8)
[2020-05-09] MEDS ORDERED: Sodium Chloride 0.9% 100 ML ONE (08:57)
[2020-05-09] MEDS ORDERED: cefTRIAXone\\ROCEPHIN 1 GM VIAL ONE (08:57)
[2020-05-09] MEDS ORDERED: Famotidine/PF 20 mg/2ml Vial SLOW IVP SCH (09:00)
[2020-05-09] MEDS ORDERED: Bupivacaine 0.25% HCL 30 ML VIAL ONE (09:05)
[2020-05-09] MEDS ORDERED: Lidocaine 1% w/Epinephrine 1:100K 20 ML VIAL ONE (09:05)
[2020-05-09] MEDS ORDERED: Iothalamate Meglumine 60% 50 ML VIAL FS ONE (09:05)
[2020-05-09] MEDS ORDERED: Midazolam HCl 2 mg/2 ml Vial ONE (09:07)
[2020-05-09] MEDS ORDERED: Fentanyl 100 MCG/2 ML VIAL ONE ×2 (09:07→11:07)
[2020-05-09] MEDS ORDERED: Ondansetron PF 4 MG/2 ML Vial ONE (10:15)
[2020-05-09] MEDS ORDERED: Glycopyrrolate 0.2 MG/ML 5 ML SYRINGE ONE (10:15)
[2020-05-09] MEDS ORDERED: Dexamethasone 20 MG/5 ML VIAL ONE (10:15)
[2020-05-09] MEDS ORDERED: PROPOFOL 200 MG/20 ML VIAL ONE (10:15)
[2020-05-09] MEDS ORDERED: Rocuronium Bromide 10 MG/ML (10ML VIAL) ONE (10:15)
[2020-05-09] MEDS ORDERED: Lidocaine 1% PF 5 ML VIAL ONE (10:15)
[2020-05-09] MEDS ORDERED: Calcium Carbonate 500 MG ChewTAB PO PRN (11:05)
[2020-05-09] MEDS ORDERED: Dextrose 5% in Water 1,000 ML IV PRN (11:05)
[2020-05-09] MEDS ORDERED: Morphine 4 MG/ML VIAL SLOW IVP PRN (11:05)
[2020-05-09] MEDS ORDERED: HYDROcodone/Acetaminophen 10/325 mg Tablet PO PRN (11:05)
[2020-05-09] MEDS ORDERED: Dextrose 50% Abboject 50 ML SYRINGE SLOW IVP PRN (11:05)
[2020-05-09] MEDS ORDERED: Ondansetron PF 4 MG/2 ML Vial IVP PRN (11:05)
[2020-05-09] MEDS ORDERED: Morphine 2 MG/ML VIAL SLOW IVP PRN (11:05)
[2020-05-09] MEDS ORDERED: hydrALAZINE 20 MG/ML VIAL SLOW IVP PRN (11:05)
[2020-05-09] MEDS ORDERED: Mag-Al 1200 mg/1200 mg/30 ML UDCUP PO PRN (11:05)
--- NOTE | 2020-05-09 11:14 | RAD ---
CHOLANGIOGRAM IN SURGERY: HISTORY: Intraoperative cholangiogram. Cholelithiasis. COMPARISON: Gallbladder ultrasound 05/07/2020. FINDINGS/IMPRESSION: Limited intraoperative fluorosocpic views from an intraoperative cholangiogram were submitted for int erpretation. Contrast was seen in the common bile duct and duodenum. No obvious filling defects are seen. No biliary dilatation is seen. POS: EAA
[2020-05-09] MEDS: Ketorolac Tromethamine 30 MG/ML VIAL IVP SCH ×3 (12:18→23:33)
--- NOTE | 2020-05-09 12:40 | RAD ---
EXAM: Chest one view: HISTORY: Mediport placement COMPARISON: 05/06/2020 FINDINGS: Poor inspiration Heart size: Within normal limits. Lungs: Minimal increased markings in the lung bases probably subsegmental atelectasis. No pneumothorax or pleural effusion. Left Port-A-Cath placement. IMPRESSION: Left Port-A-Cath placement. Poor inspiration. Minimal increased markings in the bases probably subseg mental atelectasis are related to poor inspiration.
--- NOTE | 2020-05-09 13:01 | OP ---
DATE OF PROCEDURE: 05/09/2020 PREOPERATIVE DIAGNOSES: 1. Hodgkin lymphoma. 2. Symptomatic cholelithiasis with elevated liver functions. INDICATIONS: This is a 24-year-old male with Hodgkin lymphoma, who needs access for chemotherapy, came in with severe vomiting and right upper quadrant pain. Ultrasound suggested cholelithiasis. FINDINGS: Morbidly obese. Cholangiogram was negative. MediPort was placed in the left subclavian vein. DESCRIPTION OF PROCEDURE: After informed consent was obtained, the patient was taken to the operating room and given general endotracheal anesthesia. He was placed in the Trendelenburg position. His chest and neck were prepped and draped in the usual fashion. Local anesthesia was infiltrated subcutaneously and deep, and introducer needle was inserted. Left subclavian with good backflow of venous blood. J-wire threaded easily. The skin and subcu anesthestized and a transverse chest wall incision was performed. Subcu divided sharply down to the pectoralis fascia. A pocket was created on the pectoralis fascia. The catheter was tunneled between the 2 incisions, connected to the MediPort. The MediPort was secured to the fascia with interrupted 2-0 Prolene suture. The port was flushed with heparinized saline. The catheter was cut to size. Peel-Away introducer inserted over the wire. The wire was removed. The catheter inserted through the Peel-Away introducer. Peel-Away introducer removed. Repeat x-ray performed showed good placement. The system was accessed with a Fletcher needle. Good backflow of venous blood. J-wire flushed with saline. Subcu reapproximated with interrupted 3-0 Vicryl. Skin closed with interrupted 4-0 Rapide. Dermabond applied. Then, an upper midline incision was performed. Subcu divided sharply. The fascia was grasped and 2 stay sutures of 0 Vicryl suture placed through each side of midline. Midline incised. Digital palpation revealed no local adhesions. A blunt 12-mm trocar inserted. Pneumoperitoneum was created to a pressure of 15 mmHg. Three 5-mm ports placed subcostally. The gallbladder grasped, advanced superiorly. The peritoneum dissected distally to expose the cystic duct and artery and critical view. A clip was placed at the base of the gallbladder on the cystic duct. The cystic duct was incised. A cholangiocatheter inserted. Intraoperative cholangiogram showed free flow in the duodenum, no filling defects. The duct was triply ligated with hemoclips and divided. The artery triply ligated with hemoclips and divided. The gallbladder removed from its fossa utilizing electrocautery, removed from the abdomen through the umbilical port. Hemostasis was assured. Trocars and retractors removed. The fascia closed with interrupted 0 Vicryl suture. The skin closed with interrupted 4-0 Rapide. Dermabond applied. The patient tolerated the procedure well, transferred to Recovery in good condition. Sponge and needle count verified correct x2. Job ID: [id number]
[2020-05-09] MEDS ORDERED: cefOXitin 2 GM in Sodium Chloride 0.9% 100 ML IVPB SCH (14:00)
--- NOTE | 2020-05-09 14:22 | PDOC.MOPN ---
Interval History: seen post-op. Denies pain, n/v. Taking clear liquids - Vital Signs Vital Signs: Vital Signs (12 hours) Temp Pulse Resp BP Pulse Ox 05/09/20 12:00 98.3 F 91 20 133/90 93 L 05/09/20 07:00 96 05/09/20 03:53 98.9 F 81 20 100/68 96 Weight Admit Weight 377 lb Weight 377 lb - Physical Exam General: Alert, Oriented x3, No acute distress HEENT: Atraumatic, PERRLA, EOMI, Mucous membr. moist/pink Lungs: Clear to auscultation, Normal air movement Cardiovascular: Regular rate, Normal S1, Normal S2, No murmurs, Gallops, Rubs Abdomen: Other Neurological: Normal gait, Normal speech, Strength at 5/5 X4 ext, Normal tone, Sensation intact, Cranial nerves 3-12 NL, Reflexes 2+ Psych/Mental Status: Mental status NL, Mood NL - Labs Result Diagrams: 05/09/20 05:48 05/09/20 05:48 Lab results: Laboratory Results - last 24 hr 05/09/20 05:48: WBC 28.2 H, RBC 5.20, Hgb 14.2, Hct 43.5, MCV 83.5, MCH 27.3, MCHC 32.6, RDW 14.1, Plt Count 355, MPV 9.4, Neutrophils % (Manual) 71, Band Neuts % (Manual) 7, Lymphocytes % (Manual) 12 L, Reactive Lymphs % 5, Monocytes % (Manual) 4, Eosinophils % (Manual) 1, Plt Morphology Comment Appears Adequate, Polychromasia SLIGHT = 2-3 cells 05/09/20 05:48: Sodium 138, Potassium 3.5, Chloride 102, Carbon Dioxide 22, Anion Gap 18, BUN 5 L, Creatinine 0.96, Estimated GFR (MDRD) Greater than 90, Glucose 72, Calcium 9.4, Total Bilirubin 3.6 H, AST 50 H, ALT 89 H, Alkaline Phosphatase 205 H, Serum Total Protein 8.1, Albumin 3.5, Globulin 4.6 H, Albumin/Globulin Ratio 0.8 L, Lipase 234 H Status: lab reviewed by me A/P - Problem (1) Abnormal liver function tests Current Visit: Yes Code(s): R94.5 - ABNORMAL RESULTS OF LIVER FUNCTION STUDIES Status: Acute (2) Cholelithiasis Current Visit: Yes Code(s): K80.20 - CALCULUS OF GALLBLADDER W/O CHOLECYSTITIS W/O OBSTRUCTION Status: Acute (3) Lymphoma Current Visit: Yes Status: Acute - Plan Plan: s/p cholecystectomy and mediport placement path pending dc home once stable instructed to follow-up with us after [facility] appt Encouraged to start chemo ALEN
--- NOTE | 2020-05-09 15:53 | PRG ---
DATE OF SERVICE: 05/09/2020 SUBJECTIVE: Mr. Fitch had cholecystectomy today. Intraoperative cholangiogram was normal. OBJECTIVE: VITAL SIGNS: Temperature 98.3, pulse 91, blood pressure 133/92. GENERAL: He is in no acute distress. Awake and alert. LUNGS: Clear to auscultation bilaterally. HEART: Regular rate and rhythm without murmur. ABDOMEN: Soft. Tender over surgical sites. Bowel sounds are present. EXTREMITIES: No lower extremity edema. LABORATORY DATA: White blood cell count 28.2, hemoglobin 14.2, and platelets 355. Creatinine 0.96, bilirubin 3.6, AST 50, ALT 89, alkaline phosphatase 205, albumin 3.5, and lipase 234. IMPRESSION: 1. Abnormal liver tests. The cause of the abnormal liver tests is not clear. He was not taking any medications prior to admission. No known prior liver disease; however, he is at risk for fatty liver disease. He had cholangiogram today, that was normal. 2. Possible mild pancreatitis. His lipase just today crept above 3 times upper limit of normal. He has had no abdominal pain with this. We will see what the trend of his liver tests do after cholecystectomy. 3. Hodgkin lymphoma. He needs to start chemotherapy. However, now the elevated liver tests could interfere with his chemotherapy dosing. He is now planning to go to [facility] for second opinion prior to starting chemotherapy. 4. Cholelithiasis, status post laparoscopic cholecystectomy this morning. 5. Postprandial cough, which leads to gagging and then vomiting without persistent nausea otherwise. Barium esophagogram showed no obstruction or dysmotility to explain this symptom. He does have mediastinal lymphadenopathy, but does not have typical solid-food dysphagia. RECOMMENDATIONS: We will follow the trend of his liver tests status post cholecystectomy. Job ID: [id number]
--- NOTE | 2020-05-09 18:17 | PDOC.HOSPP ---
- Subjective Encounter Date: 05/09/20 Encounter Time: 12:00 Subjective: Patient seen for follow-up regarding abnormal LFTs. Denies any new complaints. - Objective Vital Signs & Weight: Vital Signs (12 hours) Temp Pulse Resp BP Pulse Ox 05/09/20 12:00 98.3 F 91 20 133/90 93 L 05/09/20 07:00 96 Weight Admit Weight 377 lb Weight 377 lb I&O: 05/08/20 05/09/20 05/10/20 06:59 06:59 06:59 Intake Total 3138 6493 540 Balance 3138 6493 540 Result Diagrams: 05/09/20 05:48 05/09/20 05:48 Additional Labs: I reviewed patient's labs and MAR Hospitalist ROS - Review of Systems Gastrointestinal: reports: nausea. denies: vomiting, abdominal pain, diarrhea, constipation, melena, hematochezia Genitourinary: denies: dysuria, frequency, incontinence, hematuria, retention - Medication Medications: Active Medications Generic Name Dose Route Start Last Admin Trade Name Freq PRN Reason Stop Dose Admin Acetaminophen 650 mg 05/07/20 19:59 05/08/20 23:55 Acetaminophen 325 Mg Tab PO 650 mg Q4H PRN Administration Headache/Fever or Mild Pain Ceftriaxone Sodium 1 gm/ 100 mls @ 200 mls/hr 05/07/20 23:00 05/08/20 22:43 Sodium Chloride IVPB 100 mls Q24HR SUZE Administration Sodium Chloride 1,000 mls @ 75 mls/hr 05/07/20 02:00 05/09/20 04:15 Normal Saline 0.9% IV 1,000 mls .[id number] SUZE Administration Ketorolac Tromethamine 30 mg 05/09/20 12:00 05/09/20 12:18 Ketorolac Tromethamine 30 Mg/Ml Vial IVP 05/14/20 12:01 30 mg Q6HR SUZE Administration Sodium Chloride 10 ml 05/08/20 09:00 05/09/20 12:19 Flush - Normal Saline 10 Ml Syringe IVF Not Given Q12HR SUZE - Exam General - other findings: Morbidly obese Eye: scleral icterus ENT: moist mucosa Neck: supple Heart: RRR Respiratory: CTAB Gastrointestinal: soft, non-tender Skin: no rashes Psychiatric: normal affect, normal behavior Hosp A/P (1) Abnormal liver function tests Code(s): R94.5 - ABNORMAL RESULTS OF LIVER FUNCTION STUDIES Status: Acute (2) Cholelithiasis Code(s): K80.20 - CALCULUS OF GALLBLADDER W/O CHOLECYSTITIS W/O OBSTRUCTION Status: Acute (3) Lymphoma Status: Acute (4) Morbid obesity Code(s): E66.01 - MORBID (SEVERE) OBESITY DUE TO EXCESS CALORIES Status: Chronic (5) Nausea and vomiting Code(s): R11.2 - NAUSEA WITH VOMITING, UNSPECIFIED Status: Resolved - Plan Status post cholecystectomy. Status post Mediport placement. Trend LFTs. Patient to start chemotherapy after going to [facility] for second opinion. GI/general surgery/oncology following.
[2020-05-09] MEDS: cefOXitin Sodium/Dextrose,Iso 2 GM in Premix Bag 1 BAG IVPB SCH (21:14)
[2020-05-09] MEDS: Famotidine 20 MG TAB PO SCH (21:14)
[2020-05-09] MEDS: HYDROcodone/Acetaminophen 10/325 mg Tablet PO PRN (21:14)
[2020-05-09] MEDS: Famotidine/PF 20 mg/2ml Vial SLOW IVP SCH (21:16)
[2020-05-09] MEDS: cefTRIAXone\\ROCEPHIN 1 GM in Sodium Chloride 0.9% 100 ML IVPB SCH (23:32)
[2020-05-10] MEDS: HYDROcodone/Acetaminophen 10/325 mg Tablet PO PRN (03:38)
[2020-05-10] MEDS: cefOXitin Sodium/Dextrose,Iso 2 GM in Premix Bag 1 BAG IVPB SCH ×2 (05:24→14:46)
[2020-05-10] MEDS: Ketorolac Tromethamine 30 MG/ML VIAL IVP SCH ×2 (05:25→12:21)
[2020-05-10 06:01] LABS: ALT (SGPT) 65 U/L (8-55); AST (SGOT) 42 U/L (5-34); Albumin 2.8 g/dL (3.5-5.0); Alkaline Phosphatase 147 U/L (40-110); Anion Gap 16 mmol/L (10-20); BUN (Urea Nitrogen) 9 mg/dL (8.9-20.6); Bilirubin, Total 2.1 mg/dL (0.2-1.2); Calc. Creatinine Clearance 334 mL/min (70-130); Calcium 8.1 mg/dL (7.8-10.44); Carbon Dioxide 20 mmol/L (22-29); Chloride 105 mmol/L (98-107); Globulin 3.8 g/dL (2.4-3.5); Glucose 121 mg/dL (70-105); Lipase 81 U/L (8-78); Potassium 4.2 mmol/L (3.5-5.1); Protein, Total 6.6 g/dL (6.0-8.3); Sodium 137 mmol/L (136-145)
[2020-05-10 06:53] LABS: Band 17 % (5-11); Hemoglobin 11.6 g/dL (14.0-18.0); Lymphocytes 4 % (21-51); MDiff Complete? YES; Mean Corpuscular HGB CONC 31.3 g/dL (32.0-36.0); Mean Corpuscular Hemoglobin 26.7 pg (27.0-31.0); Mean Corpuscular Volume 85.2 fL (78.0-98.0); Mean Platelet Volume 9.2 fL (7.4-10.4); Monocytes 10 % (0-10); Neutrophil 69 % (42-75); Platelet Count 232 thou/uL (130-400); RBC Distribution Width 14.2 % (11.5-14.5); RBC Morphology Normal; Red Blood Cell (RBC) Count 4.33 mill/uL (4.70-6.10); White Blood Cell (WBC) Count 18.7 thou/uL (4.8-10.8)
[2020-05-10] MEDS: Sodium Chloride 0.9% 1,000 ML IV SCH (08:20)
[2020-05-10] MEDS: Famotidine 20 MG TAB PO SCH (08:38)
[2020-05-10] MEDS: Famotidine/PF 20 mg/2ml Vial SLOW IVP SCH (08:39)
[2020-05-10] MEDS ORDERED: Enoxaparin Sodium 40 MG/0.4 ML SYRINGE SC SCH (09:00)
[2020-05-10 09:07] LABS: Iron 71 ug/dL (65-175); Iron Binding Capacity, Total 166 mcg/dL (261-462)
--- NOTE | 2020-05-10 11:22 | PRG ---
DATE OF SERVICE: 05/10/2020 SUBJECTIVE: Mr. Fitch has no acute complaints today. He has only coughed a few times when he has gotten up to walk to the bathroom. He has had no problems with his clear liquids. He has no abdominal pain or nausea currently. OBJECTIVE: VITAL SIGNS: Temperature 97.7, pulse 60, blood pressure 130/80. GENERAL: He is in no acute distress. Alert and oriented x3. LUNGS: Clear to auscultation bilaterally. HEART: Regular rate and rhythm without murmur. ABDOMEN: Soft, nontender, and nondistended. Bowel sounds are present. EXTREMITIES: No lower extremity edema. LABORATORY DATA: White blood cell count 18.7, hemoglobin 11.6, platelets 232. Iron 71, TIBC 166, ferritin 1527, bilirubin 2.1, AST 42, ALT 65, alkaline phosphatase 147. Creatinine 0.81. IMPRESSION: 1. Abnormal liver test. They are trending down today. It is possible that he had an obstructive process or passed stone that is now improving. He also might have had more of an intrinsic liver source for these elevated liver test. His viral hepatitis screen is negative. The intraoperative cholangiogram was normal. He did have a mixed hepatocellular injury and cholestatic pattern. Primarily cholestatic. Hopefully, his liver tests head towards normal, status post surgery. I will send labs for other causes of liver disease in the meantime. 2. Possible mild pancreatitis with elevated lipase and elevated liver tests, which could have been a gallstone pancreatitis. Status post cholecystectomy now. His pancreatic enzymes trended down today and he has no abdominal pain. He did not have typical symptoms suggestive of pancreatitis prior, but he did have some low back pain, which could have been related to that. Again, we will follow the trend of his liver tests at this point. 3. Hodgkin lymphoma. He is waiting to start chemotherapy and plans to go to [facility] for a second opinion prior to starting. 4. Cholelithiasis, status post cholecystectomy. 5. Postprandial cough, which led to gagging, which then led to vomiting. We will advance his diet and see how he does with that today. RECOMMENDATIONS: 1. Advance to low-fat diet. 2. Check autoimmune liver tests and ceruloplasmin and alpha-1 antitrypsin level. His iron saturation was okay. 3. Continue to follow trend of his liver tests tomorrow morning. Job ID: [id number]
[2020-05-10 16:09] VITALS: BP 132/93; TEMP 97.7
--- NOTE | 2020-05-10 17:31 | PDOC.DS.DS ---
Provider - Provider Date of Admission: 05/07/20 00:03 Date of Discharge: 05/10/20 Admitting Provider: Lela Denney MD Consultations: Gastroentrology, General Surgery, Oncology Primary Care Physician: Porsha Sandoval, Course - Hospital Course Hospital Course: Patient is a 24-year-old male with recent diagnosis of Hodgkin's lymphoma presented to the hospital with nausea and vomiting. He also had 1 episode of diarrhea. He was unable to tolerate p.o. Please refer to the history and physical for further details The patient was admitted to the hospital with a diagnosis of nausea, vomiting with abnormal LFTs. His total bilirubin on admission was 4.6 with AST of 75, ALT of 123 and alkaline phosphatase of 232. He also had elevated lipase maximum of 234. Patient was evaluated by gastroenterology and general surgery. He underwent cholecystectomy as well as Mediport placement this admission. LFTs are gradually improving. He is tolerated low-fat diet. I evaluated the patient this afternoon prior to discharge. Patient was discharged by general surgery earlier today. Final diagnosis: Nausea/vomiting/abnormal LFTs probably due to suspected choledocholithiasis Symptomatic cholelithiasis Morbid obesity with a BMI 51.1 GERD History of Hodgkin's lymphoma Test pending at discharge: Ceruloplasmin, autoimmune liver work-up and alpha 1 antitrypsin level Resuscitation Status: 05/07/20 01:32 Resuscitation Status Routine Resuscitation Status: FULL: Full Resuscitation - Labs Lab Results: 05/10/20 05:25 05/10/20 05:25 Abnormal Lab Results - Last 48 hrs 05/09/20 05:48: BUN 5 L, Total Bilirubin 3.6 H, AST 50 H, ALT 89 H, Alkaline Phosphatase 205 H, Globulin 4.6 H, Albumin/Globulin Ratio 0.8 L, Lipase 234 H 05/09/20 05:48: WBC 28.2 H, Lymphocytes % (Manual) 12 L 05/10/20 05:25: Carbon Dioxide 20 L, Total Bilirubin 2.1 H, AST 42 H, ALT 65 H, Alkaline Phosphatase 147 H, Albumin 2.8 L, Globulin 3.8 H, Albumin/Globulin Ratio 0.7 L, Lipase 81 H 05/10/20 05:25: WBC 18.7 H, RBC 4.33 L, Hgb 11.6 L, Hct 36.9 L, MCH 26.7 L, MCHC 31.3 L, Band Neuts % (Manual) 17 H, Lymphocytes % (Manual) 4 L 05/10/20 08:33: TIBC 166 L 05/10/20 08:33: Ferritin 1527.05 H Microbiology - Entire Visit 05/06/20 21:40 Venous blood - Right Hand Blood Culture - Preliminary NO GROWTH AT 48 HOURS 05/06/20 21:40 Venous blood - Right Arm Blood Culture - Preliminary NO GROWTH AT 48 HOURS - Physical Exam Vitals: Vital Signs (12 hours) Temp Pulse Resp BP Pulse Ox 05/10/20 15:39 97.7 F 61 18 132/93 H 94 L 05/10/20 11:35 98.0 F 53 L 18 127/82 96 05/10/20 08:20 94 L 05/10/20 07:47 97.7 F 60 18 130/80 94 L Weight Admit Weight 377 lb Weight 377 lb Physical Exam: The patient was seen and examined on the day of discharge. Plan - Discharge Medications Home Medications: Medication Instructions Recorded Confirmed Type No Known 04/14/20 05/07/20 History Allergies: No Known Allergies Allergy (Verified 05/07/20 02:39) - Discharge Instructions Discharge Instructions:: MAY SHOWER, NO TUB BATHS. EAT WHEN HUNGRY; TRY TO STICK WITH CLEARS OTHERWISE. NO DRIVING WHILE TAKING PAIN MEDICATIONS. - Follow up Plan Referrals: Porsha Sandoval PA [Primary Care Provider] - Jewel Andrea Jr, MD [Active] - 14 Days (CALL DR ANDREA'S OFFICE FOR APPOINTMENT. ) Disposition: HOME Quality - Care Measures CORE MEASURES:: N/A
[2020-05-11 17:40] LABS: EliA Vaculitis New Method **** NEW METHOD ****; Mitochondrial Ab 1.3 U/mL (<4 Negative)
--- NOTE | 2020-05-12 08:13 | DIS ---
DATE OF ADMISSION: 05/07/2020 DATE OF DISCHARGE: 05/10/2020 DISCHARGE DIAGNOSES: Symptomatic cholelithiasis and B-cell lymphoma. PROCEDURES DURING ADMISSION: Laparoscopic cholecystectomy with intraoperative cholangiogram. MediPort placement. HOSPITAL COURSE: The patient is a 24-year-old male who recently was diagnosed with a B-cell lymphoma of the neck. He needs access for chemo. He also was having severe right upper quadrant pain. CT showed a distended gallbladder with gallstones. He underwent a laparoscopic cholecystectomy. Postoperatively, he has done well. His chest x-ray showed good placement of the MediPort. He is tolerating a liquid diet. He is hungry for regular food. He is passing gas. He wants to go home. He was discharged to home on hydrocodone and Zofran and will follow up with me in 2 weeks. He is also planning on going down to [facility] next week. Job ID: [id number]
== END 2020-05-10 16:32 | disposition home or self-care (01) | DRG 417 ==
LOC: ERS 20:16 → SURG A 05-07 00:03
PROVIDERS: ADMIT Internal Medicine; ATTEND Internal Medicine
PROC: 0FT44ZZ Resection of Gallbladder, Percutaneous Endoscopic Approach (ICD-10-PCS; principal; 2020-05-09)
PROC: 0JH60WZ Insertion of Totally Implantable Vascular Access Device into Chest Subcutaneous Tissue and Fascia, Open Approach (ICD-10-PCS; 2020-05-09)
PROC: BF101ZZ Fluoroscopy of Bile Ducts using Low Osmolar Contrast (ICD-10-PCS; 2020-05-09)
PROC: 02HV33Z Insertion of Infusion Device into Superior Vena Cava, Percutaneous Approach (ICD-10-PCS; 2020-05-09)
PROC: B518ZZA Fluoroscopy of Superior Vena Cava, Guidance (ICD-10-PCS; 2020-05-09)
DX: K80.00 Calculus of gallbladder with acute cholecystitis without obstruction (principal); K85.10 Biliary acute pancreatitis without necrosis or infection; Z68.43 Body mass index [BMI] 50.0-59.9, adult; C85.11 Unspecified B-cell lymphoma, lymph nodes of head, face, and neck; Z20.828 Contact with and (suspected) exposure to other viral communicable diseases; E66.01 Morbid (severe) obesity due to excess calories; R63.4 Abnormal weight loss
CPT/HCPCS: 36415; 47532; 71045; 74220; 76705; 80053; 80074; 80306; 80307; 81003; 81015; 82103; 82390; 82550; 82728; 83516; 83540; 83550; 83605; 83690; 85025; 85379; 87040; 88304; 93005; 96365; C1788; J0694; J0696; J1100; J1200; J1610; J1642; J1650; J1885; J2250; J2270; J2405; J2704; J3010; J3490; S0020

== ENCOUNTER 2020-05-13 20:38 | Inpatient (IN) | payer OTHER ==
[~2020-05-13 20:38] MED LIST: Iopamidol-370 76% 500 ML 1 ML ONE
[2020-05-13 22:02] LABS: Hemoglobin 12.3 g/dL (14.0-18.0); Mean Corpuscular HGB CONC 32.4 g/dL (32.0-36.0); Mean Corpuscular Hemoglobin 27.2 pg (27.0-31.0); Mean Corpuscular Volume 84.1 fL (78.0-98.0); RBC Distribution Width 14.2 % (11.5-14.5); Red Blood Cell (RBC) Count 4.53 mill/uL (4.70-6.10); White Blood Cell (WBC) Count 23.4 thou/uL (4.8-10.8)
[2020-05-13 22:19] LABS: ALT (SGPT) 88 U/L (8-55); AST (SGOT) 48 U/L (5-34); Albumin 3.3 g/dL (3.5-5.0); Alkaline Phosphatase 229 U/L (40-110); Anion Gap 15 mmol/L (10-20); BUN (Urea Nitrogen) 10 mg/dL (8.9-20.6); Bilirubin, Total 2.1 mg/dL (0.2-1.2); Calc. Creatinine Clearance 0 mL/min (70-130); Carbon Dioxide 25 mmol/L (22-29); Chloride 98 mmol/L (98-107); Globulin 4.6 g/dL (2.4-3.5); Glucose 88 mg/dL (70-105); Potassium 3.2 mmol/L (3.5-5.1); Protein, Total 7.9 g/dL (6.0-8.3); Sodium 135 mmol/L (136-145)
[2020-05-13 22:20] LABS: Band 10 % (5-11); Eosinophils 4 % (0-10); Lymphocytes 4 % (21-51); MDiff Complete? YES; Mean Platelet Volume 8.5 fL (7.4-10.4); Monocytes 9 % (0-10); Neutrophil 73 % (42-75); Platelet Count 451 thou/uL (130-400)
[2020-05-13] MEDS ORDERED: Pantoprazole 40 MG VIAL ONE (23:01)
[2020-05-13] MEDS ORDERED: Ondansetron PF 4 MG/2 ML Vial ONE (23:01)
[2020-05-13] MEDS ORDERED: Piperacillin/Tazobactam 4.5 GM VIAL ONE (23:01)
--- NOTE | 2020-05-13 23:17 | RAD ---
XR Chest 1 View Portable History: Sepsis Comparison: Radiograph May 09, 2020 Findings: Port catheter is in place with tip poorly seen. Resolving lower lobe airspace opacities. No pneumothorax. Impression: Resolving lower lobe airspace opacities as seen on prior exam.
[2020-05-13 23:33] LABS: Bacteria/HPF None Seen HPF (None Seen); Bilirubin Negative (Negative); Blood, Urine Negative (Negative); Clarity Clear (Clear); Glucose, Urine (Dipstick) Normal (Negative); Ketone, Urine Negative (Negative); Leukocyte 250 Leu/uL (Negative); Nitrite Negative (Negative); Protein, Urine (Dipstick) 20 mg/dL (Neg-Trace); RBC/HPF 0-3 HPF (0-3); Specific Gravity, Urine 1.007 (1.002-1.036); Squamous Epithelial None Seen HPF (0-3); Urobilinogen Normal mg/dL (Less than 2)
--- NOTE | 2020-05-13 23:43 | CT ---
CT Abdomen Pelvis W Con History: Nausea and vomiting Comparison: None Findings: Mild atelectasis lung bases. No pericardial effusion. Dense contrast creating extensive str eak artifact throughout the descending colon, rectum, and transverse colon. There is also dense contrast in the cecal apex limiting appendiceal interrogation. No hydronephrosis. Renal enhancement is symmetric. Pancreas is unremarkable along with the adrenal gl ands, spleen, liver, pancreas. Cholecystectomy clips. Subtle supraumbilical fat stranding within the superficial fat. Impression: 1. No postoperative complication from recent cholecystectomy. 2. Streak artifact limits the appendiceal evaluation. No definite evidence for appendicitis.
[2020-05-14] MEDS ORDERED: Ondansetron PF 4 MG/2 ML Vial IVP PRN (00:41)
[2020-05-14] MEDS ORDERED: Acetaminophen 325 MG TAB PO PRN (00:41)
--- NOTE | 2020-05-14 01:44 | HP ---
CHIEF COMPLAINT: Abdominal pain, nausea and vomiting. HISTORY OF PRESENT ILLNESS: Mr. Fitch is a 24-year-old male who was recently diagnosed with lymphoma, who underwent cholecystectomy on 05/09/2020, presented to the emergency room with nausea, vomiting, and abdominal pressure. The patient has these issues since his last ED visit. The problem started several weeks ago when he had had a mediastinal lymph node biopsy. He has been unable to eat or drink since discharge from the hospital. Postoperatively, the patient symptoms persist, and he is still having fevers at home. Workup in the emergency room, the patient had elevated WBC count of 23, hemoglobin 12, and platelets 451. Sodium is 135, potassium 3.2. AST 48, ALT 88, bilirubin 2.1. Imaging studies including CT of the abdomen and pelvis showed no postoperative complication from recent cholecystectomy. In the emergency room, septic workup was done. The patient was started on IV antibiotic. The patient is being admitted to the hospital for further management. PAST MEDICAL HISTORY: Lymphoma. PAST SURGICAL HISTORY: 1. Lymph node biopsy. 2. Cholecystectomy. SOCIAL HISTORY: Denies smoking, alcohol drinking, or drug abuse. FAMILY HISTORY: Reviewed and noncontributory. HOME MEDICATIONS: See home medication reconciliation form for updated medications. REVIEW OF SYSTEMS: Review of 14 systems is negative except for what is mentioned in the history of present illness. PHYSICAL EXAMINATION: GENERAL: The patient is awake, alert, in moderate distress. VITAL SIGNS: Blood pressure 130/78, pulse is 106, respiratory rate is 18, temperature is 100.6, oxygen saturation 99% on room air. HEENT: Head and neck normocephalic, atraumatic. NECK: Supple. No JVD. CHEST: Bilateral air entry. Abdomen: Mildly distended. Epigastric tenderness. Bowel sounds present. NEUROLOGIC: Awake, alert, oriented. No focal deficits. PSYCH: Unable to assess. EXTREMITIES: No clubbing, no cyanosis. GENITOURINARY: No suprapubic tenderness. No flank tenderness. LABORATORY DATA: As mentioned above in the history of present illness. IMAGING STUDIES: As mentioned above in the history of present illness. ASSESSMENT AND PLAN: 1. Intractable nausea and vomiting. 2. Abdominal pain. 3. Leukocytosis. 4. Hypokalemia. 5. Lymphoma. 6. Recent cholecystectomy. PLAN: 1. Admit. 2. Septic workup done in the ED. 3. IV antibiotic. 4. IV fluids. 5. To consult the patient's oncologist in a.m. for evaluation and further recommendations. It is unclear if the patient's symptoms could be secondary to underlying lymphoma. 6. Replace potassium. 7. DVT prophylaxis as appropriate. 8. Expected length of stay, 2 midnights or more. Job ID: [id number]
[2020-05-14] MEDS ORDERED: Potassium Chloride 20 MEQ in Premix Bag 1 BAG IVPB SCH (02:00)
[2020-05-14 02:25] VITALS: BMI 48.8
[2020-05-14] MEDS: Sodium Chloride 0.9% 1,000 ML IV SCH ×3 (02:47→21:51)
[2020-05-14] MEDS ORDERED: Piperacillin/Tazobactam 3.375 GM in Sodium Chloride 0.9% 100 ML IVPB SCH (06:00)
[2020-05-14 06:44] LABS: ALT (SGPT) 70 U/L (8-55); AST (SGOT) 43 U/L (5-34); Albumin 2.9 g/dL (3.5-5.0); Alkaline Phosphatase 181 U/L (40-110); Anion Gap 14 mmol/L (10-20); BUN (Urea Nitrogen) 9 mg/dL (8.9-20.6); Bilirubin, Total 2.1 mg/dL (0.2-1.2); Calc. Creatinine Clearance 233 mL/min (70-130); Calcium 8.4 mg/dL (7.8-10.44); Carbon Dioxide 24 mmol/L (22-29); Chloride 102 mmol/L (98-107); Globulin 3.9 g/dL (2.4-3.5); Glucose 98 mg/dL (70-105); Potassium 3.5 mmol/L (3.5-5.1); Protein, Total 6.8 g/dL (6.0-8.3); Sodium 136 mmol/L (136-145)
[2020-05-14 07:11] LABS: Hemoglobin 10.7 g/dL (14.0-18.0); Mean Corpuscular HGB CONC 31.7 g/dL (32.0-36.0); Mean Corpuscular Hemoglobin 27.2 pg (27.0-31.0); Mean Platelet Volume 9.8 fL (7.4-10.4); Platelet Count 333 thou/uL (130-400); RBC Distribution Width 14.1 % (11.5-14.5); Red Blood Cell (RBC) Count 3.91 mill/uL (4.70-6.10); White Blood Cell (WBC) Count 19.3 thou/uL (4.8-10.8)
[2020-05-14] MEDS: Famotidine/PF 20 mg/2ml Vial SLOW IVP SCH ×2 (09:19→20:27)
[2020-05-14 10:03] LABS: Band 4 % (5-11); Eosinophils 2 % (0-10); Lymphocytes 6 % (21-51); MDiff Complete? YES; Metamyelocyte 1 % (0-0); Monocytes 8 % (0-10); Neutrophil 79 % (42-75); Platelet Morphology Comment Appears Adequate; Polychromasia SLIGHT = 2-3 cells (100X) (0-2/hpf)
[2020-05-14] MEDS: HYDROcodone/Acetaminophen 5/325 mg Tablet PO PRN ×2 (11:54→17:35)
--- NOTE | 2020-05-14 12:30 | PDOC.HOSPP ---
- Subjective Encounter Date: 05/14/20 Subjective: Patient with recent diagnosis of lymphoma presents for evaluation of multiple non specific symptoms. Seen and examined at bedside with mother in the room. States that he continues to have persistent cough that is mainly no productive. States that coughing spells cause nausea and induce some vomiting. He has not been able to tolerate diet well now for several weeks. He tells me that eating solid food sometimes will precipitate coughing but denies any chocking. He states that he has no issues with liquids. Other than above also refers some subjective fever. He denies any abdominal pain or diarrhea. Refers frequency but no dysuria. - Objective Vital Signs & Weight: Vital Signs (12 hours) Temp Pulse Resp BP Pulse Ox 05/14/20 11:32 99.5 F 82 18 102/62 94 L 05/14/20 07:09 99.4 F 91 18 105/72 94 L 05/14/20 02:23 99.5 F 88 20 116/82 96 Weight Weight 360 lb 0.238 oz Result Diagrams: 05/14/20 05:30 05/14/20 05:30 Hospitalist ROS - Review of Systems Constitutional: reports: fever, malaise Respiratory: reports: cough, sputum. denies: hemoptysis, SOB with excertion, pleuritic pain, wheezing Cardiovascular: denies: chest pain, palpitations, orthopnea, paroxysmal noc. dyspnea, edema, light headedness, other Gastrointestinal: reports: nausea, vomiting, constipation. denies: abdominal pain, diarrhea Genitourinary: reports: frequency. denies: dysuria, incontinence, hematuria, retention Neurological: denies: weakness, numbness, incoordination, change in speech, confusion, seizures, other - Medication Medications: Active Medications Generic Name Dose Route Start Last Admin Trade Name Freq PRN Reason Stop Dose Admin Hydrocodone Bitart/Acetaminophen 1 tab 05/14/20 11:46 05/14/20 11:54 Hydrocodone/Acetaminophen 5/325 Mg Tablet PO 05/15/20 13:00 1 tab Q4H PRN Administration Mild Pain (1-3) Famotidine 20 mg 05/14/20 09:00 05/14/20 09:19 Famotidine/Pf 20 Mg/2ml Vial SLOW IVP 20 mg Q12HR SUZE Administration Sodium Chloride 1,000 mls @ 100 mls/hr 05/14/20 00:45 05/14/20 11:34 Normal Saline 0.9% IV 1,000 mls .Q10H SUZE Administration - Exam General Appearance: NAD, awake alert Eye: PERRL, anicteric sclera ENT: normocephalic atraumatic, no oropharyngeal lesions, moist mucosa Neck: supple, no JVD Heart: RRR, no murmur, no gallops, no rubs, normal peripheral pulses Respiratory: CTAB, no wheezes, no rales, no ronchi, normal chest expansion, no tachypnea, normal percussion Gastrointestinal: soft, non-tender, non-distended, normal bowel sounds, no palpable masses, no hepatomegaly, no splenomegaly, no bruit Extremities: no cyanosis, no clubbing, no edema Hosp A/P - Plan old records reviewed/req A/P: Patient with recent diagnosis of Hodgkin lymphoma presents for evaluation of ongoing cough, nausea, vomiting, poor oral intake, malaise. Recently underwent cholecystectomy for elevated LFTs. Repeat CT scan without any evidence of complication. He does have elevated WBCs and subjective fever with malaise. On exam he appears non toxic/septic. # Hodgkin lymphoma: Recent diagnosis of nodular sclerosis cHL awaiting to start treatment. Unclear if some of his symptoms of ongoing cough are related to his lymphadenopathy in the mediastinal area. He also refers some ongoing malaise and subjective fever which could also be attributed to his current cHL diagnosis. He has an appointment at [facility] in [place] tomorrow 05-15-20 for 2nd opinion. If he remains stable he will be discharge palliative care coordinator to follow up with such appointment. Our hematology/oncology team was consulted for this admission. # Chronic cough: Unclear if related to his lymphoma. PET Scan show lymphadenopathy but no mass. CT scan on admission demonstrates bibasilar atelectasis. Recent barium swallow shows evidence of reflux. Although he has leukocytosis I doubt this is related to his cough. Add Tessalon for cough. Continue with IV Pepcid for GERD. # Possible GERD: Possible GERD based on barium swallow evaluation and cough. Continue with IV Pepcid. Will discharge on higher dose of PPI for 2 weeks. Pending progression may need further assessment by GI likely as outpatient. # Urinary frequency: UA with +'ve LE and WBCs. Currently receiving antibiotics with IV Zosyn to cover intra-abdominal pathology due to recent cholecystecomy. Will continue with current antibiotics and likely de-escalate to Ceftriaxone and PO Ceftin at time of discharge. Urine culture sent. # Transaminitis: Recent history of cholecystectomy. Abdominal exam is benign. No abdominal pain referred. CT abdomen without evidence of complication. On IV Zosyn which I will continue today to then de-escalate per above plan. # Leukocytosis: Possibly multifactorial in setting of Lymphoma and possible UTI. Patient does not appears septic/toxic. Will continue with IV ABX and likely de-escalate to cover UTI upon discharge. DISPOSITION: Will remain in the hospital today with plans to DC on 05-15-20 to make appointment at [facility].
[2020-05-14] MEDS: Benzonatate 100 MG CAP PO SCH ×2 (14:26→20:27)
[2020-05-14] MEDS: Piperacillin/Tazobactam 3.375 GM in Sodium Chloride 0.9% 100 ML IVPB SCH ×2 (14:27→20:26)
--- NOTE | 2020-05-14 18:48 | CON ---
DATE OF CONSULTATION: REASON FOR CONSULTATION: Hodgkin lymphoma. HISTORY OF PRESENT ILLNESS: Mr. Fitch is a pleasant 24-year-old gentleman, who has stage II classic Hodgkin lymphoma. He was diagnosed in early April. He has bilateral cervical, supraclavicular, axillary, and mediastinal lymphadenopathy. He is set to start chemotherapy with ABVD. However, he is wanting a second opinion from [facility]. The day before his scheduled appointment, he showed up in this ER with abdominal pain and fever. He ended up having a cholecystectomy and was sent home. His appointment was rescheduled for tomorrow. His symptoms have persisted and he continues to have fever as high as 101 with abdominal discomfort. He has coughing spells that caused vomiting. He has continued to have a poor appetite. He underwent a CT scan on this visit, which showed no evidence of complication from his cholecystectomy. He has no fever today and is feeling good. PAST MEDICAL HISTORY: 1. Newly diagnosed classic Hodgkin lymphoma. 2. Morbid obesity. PAST SURGICAL HISTORY: 1. Cholecystectomy. 2. Lymph node biopsy. ALLERGIES: NO KNOWN DRUG ALLERGIES. HOME MEDICATIONS: Ibuprofen. FAMILY HISTORY: No history of lymphoma. SOCIAL HISTORY: Single. No children. Lives alone. No alcohol, tobacco, or illicit drug use. REVIEW OF SYSTEMS: A 12-point review of systems is negative except for noted in HPI. PHYSICAL EXAMINATION: VITAL SIGNS: Temperature is 99.5, pulse is 82, respiratory rate 18, BP is 102/62. He is 94% on room air. GENERAL: This is a well-developed, well-nourished male, in no acute distress. HEENT: Normocephalic and atraumatic. Pupils are equal and reactive to light. NECK: Supple. CV: Regular rate and rhythm. LUNGS: Clear. ABDOMEN: Obese. Bowel sounds are positive. EXTREMITIES: No clubbing or cyanosis. SKIN: No rash. LYMPH: He has palpable lymphadenopathy in his bilateral neck, supraclavicular, and right axilla. NEUROLOGIC: Nonfocal. PERTINENT LABORATORY DATA AND X-RAYS: WBCs are 19.3, hemoglobin 10.7, hematocrit 33.7, platelet count is 333,000, 79% neutrophils, 4% bands, 6% lymphocytes. Sodium 136, potassium 3.5, chloride 102, CO2 is 24, BUN is 9, creatinine 1.11, lactic acid 1.3, calcium 8.4, bilirubin 2.1, AST is 43, ALT is 70, alkaline phosphatase is 181, serum total protein is 6.8, albumin 2.9, globulin 3.9. Radiology per HPI. ASSESSMENT: 1. Stage II-B classic Hodgkin lymphoma, untreated. 2. Recurrent fevers, likely secondary to untreated lymphoma. DISCUSSION: The patient is having B type symptoms including fever. His cough could be secondary to mediastinal lymphadenopathy. It is unclear the source of his abdominal pain. He does have elevated LFTs, which were new with hospitalization. There appears to be no evidence of lymphadenopathy below the diaphragm. The patient has a second opinion at [facility] tomorrow. We would recommend that he be discharged in time to follow up with them. We discussed that if he is unable to make that appointment, he needs to start chemotherapy with us in the next several days as he has waited almost a month since diagnosis. He is in agreement. The plan is for discharge home in the morning and follow up with us in the clinic. Thank you for the consult. Job ID: [id number]
[2020-05-15] MEDS: Piperacillin/Tazobactam 3.375 GM in Sodium Chloride 0.9% 100 ML IVPB SCH ×2 (00:01→08:08)
[2020-05-15] MEDS: Sodium Chloride 0.9% 1,000 ML IV SCH (00:32)
[2020-05-15 05:53] LABS: #Basophils 0.1 thou/uL (0.0-0.2); #Eosinphils 0.8 thou/uL (0.0-0.7); #Lymphocytes 1.2 thou/uL (1.20-3.40); #Monocytes 2.5 thou/uL (0.11-0.59); #Neutrophils 14.8 thou/uL (1.40-6.50); %Basophils 0.3 % (0.0-1.0); %Eosinophils 4.2 % (0.0-10.0); %Lymphocytes 6.2 % (21.0-51.0); %Monocytes 12.8 % (0.0-10.0); %Neutrophils 76.6 % (42.0-75.0); Hemoglobin 10.5 g/dL (14.0-18.0); Mean Corpuscular HGB CONC 32.7 g/dL (32.0-36.0); Mean Corpuscular Hemoglobin 27.8 pg (27.0-31.0); Mean Corpuscular Volume 85.1 fL (78.0-98.0); Mean Platelet Volume 8.5 fL (7.4-10.4); Platelet Count 428 thou/uL (130-400); RBC Distribution Width 14.1 % (11.5-14.5); Red Blood Cell (RBC) Count 3.78 mill/uL (4.70-6.10); White Blood Cell (WBC) Count 19.4 thou/uL (4.8-10.8)
[2020-05-15 06:23] LABS: ALT (SGPT) 66 U/L (8-55); AST (SGOT) 46 U/L (5-34); Albumin 2.8 g/dL (3.5-5.0); Alkaline Phosphatase 180 U/L (40-110); Anion Gap 15 mmol/L (10-20); BUN (Urea Nitrogen) 8 mg/dL (8.9-20.6); Bilirubin, Total 1.8 mg/dL (0.2-1.2); Calc. Creatinine Clearance 212 mL/min (70-130); Calcium 8.6 mg/dL (7.8-10.44); Carbon Dioxide 24 mmol/L (22-29); Chloride 102 mmol/L (98-107); Glucose 84 mg/dL (70-105); Potassium 3.1 mmol/L (3.5-5.1); Protein, Total 6.8 g/dL (6.0-8.3); Sodium 138 mmol/L (136-145)
[2020-05-15 08:06] VITALS: BP 110/73; TEMP 99.3
[2020-05-15] MEDS: Benzonatate 100 MG CAP PO SCH (08:08)
[2020-05-15] MEDS: Famotidine/PF 20 mg/2ml Vial SLOW IVP SCH (08:08)
--- NOTE | 2020-05-15 08:09 | PDOC.DS.DS ---
Provider - Provider Date of Admission: 05/14/20 00:52 Date of Discharge: 05/15/20 Admitting Provider: Nellie Rodriguez MD Consultations: Oncology Primary Care Physician: Porsha Sandoval, Course - Hospital Course Hospital Course: Patient with recent diagnosis of lymphoma presents for evaluation of multiple non specific symptoms. Seen and examined at bedside with mother in the room. States that he continues to have persistent cough that is mainly no productive. States that coughing spells cause nausea and induce some vomiting. He has not been able to tolerate diet well now for several weeks. He tells me that eating solid food sometimes will precipitate coughing but denies any chocking. He states that he has no issues with liquids. Other than above also refers some subjective fever. He denies any abdominal pain or diarrhea. Refers frequency but no dysuria. Patient was admitted for observation and assessment by oncology . It is very possible that her symptoms are related to her diagnosis of Lymphoma. Patient did appear to have some urinary symptoms (frequency) with questionable UA. He was started on empiric treatment for UTI. He had appointment at [facility] for 2nd opinion today 05-15-20. Given that patient had no acute symptoms suggestive of life threatening infection neither any signs of complications from his recent cholecystectomy he was discharged with indications to follow up with oncology group at [facility] in [place] today. Patient is medically stable to transition his care to the outpatient basis. Resuscitation Status: 05/14/20 00:41 Resuscitation Status Routine Resuscitation Status: FULL: Full Resuscitation - Labs Lab Results: 05/15/20 05:26 05/15/20 05:26 Abnormal Lab Results - Last 48 hrs 05/13/20 21:39: Sodium 135 L, Potassium 3.2 L, Total Bilirubin 2.1 H, AST 48 H, ALT 88 H, Alkaline Phosphatase 229 H, Albumin 3.3 L, Globulin 4.6 H, Albumin/Globulin Ratio 0.7 L 05/13/20 21:39: WBC 23.4 H, RBC 4.53 L, Hgb 12.3 L, Hct 38.1 L, Plt Count 451 H, Lymphocytes % (Manual) 4 L 05/13/20 23:10: Ur Leukocyte Esterase 250 A, Urine WBC 11-20 A 05/14/20 05:30: Total Bilirubin 2.1 H, AST 43 H, ALT 70 H, Alkaline Phosphatase 181 H, Albumin 2.9 L, Globulin 3.9 H, Albumin/Globulin Ratio 0.7 L 05/14/20 05:30: WBC 19.3 H, RBC 3.91 L, Hgb 10.7 L, Hct 33.7 L, MCHC 31.7 L, Neutrophils % (Manual) 79 H, Band Neuts % (Manual) 4 L, Lymphocytes % (Manual) 6 L, Metamyelocytes % (Man) 1 H 05/15/20 05:26: Potassium 3.1 L, BUN 8 L, Total Bilirubin 1.8 H, AST 46 H, ALT 66 H, Alkaline Phosphatase 180 H, Albumin 2.8 L, Globulin 4.0 H, Albumin/Globulin Ratio 0.7 L 05/15/20 05:26: WBC 19.4 H, RBC 3.78 L, Hgb 10.5 L, Hct 32.1 L, Plt Count 428 H, Neutrophils % 76.6 H, Lymphocytes % 6.2 L, Monocytes % 12.8 H, Neutrophils # 14.8 H, Monocytes # 2.5 H, Eosinophils # 0.8 H Microbiology - Entire Visit 05/13/20 23:10 Urine voided Urine Culture - Preliminary NO GROWTH AT 12 HOURS - Physical Exam Vitals: Vital Signs (12 hours) Temp Pulse Resp BP Pulse Ox 05/15/20 08:03 99.3 F 83 16 110/73 93 L 05/14/20 20:37 98.3 F 89 20 97/60 97 Weight Weight 360 lb 0.238 oz Physical Exam: The patient was seen and examined on the day of discharge. Problem - Discharge Plan Assessment: A/P: Patient with recent diagnosis of Hodgkin lymphoma presents for evaluation of ongoing cough, nausea, vomiting, poor oral intake, malaise. Recently underwent cholecystectomy for elevated LFTs. Repeat CT scan without any evidenc e of complication. He does have elevated WBCs and subjective fever with malaise. On exam he appears non toxic/septic. # Hodgkin lymphoma: Recent diagnosis of nodular sclerosis cHL awaiting to start treatment. Unclear if some of his symptoms of ongoing cough are related to his lymphadenopathy in the mediastinal area. He also refers some ongoing malaise and subjective fever which could also be attributed to his current cHL diagnosis. He has an appointment at [facility] in [place] 05-15-20 for 2nd opinion. Our hematology/oncology team was consulted and per their evaluation also agree that some of his symptoms could be related to his lymphoma. Plan is to discharge him today for follow up at [facility] and to start treatment soon as outpatient. # Chronic cough: Unclear if related to his lymphoma. PET Scan show lymphadenopathy but no mass. CT scan on admission demonstrates bibasilar atelectasis. Recent barium swallow shows evidence of reflux. Although he has leukocytosis I doubt this is related to his cough. Added Tessalon for cough. Started on PPI for GERD at time of discharge. # Possible GERD: Possible GERD based on barium swallow evaluation and cough. Continue with IV Pepcid. Will discharge on PPI for 2 weeks. Pending progression may need further assessment by GI likely as outpatient. # Urinary frequency: UA with +'ve LE and WBCs. Transition to PO Ceftin at time of discharge. Urine culture sent & pending. # Transaminitis: Recent history of cholecystectomy. Abdominal exam is benign. No abdominal pain referred. CT abdomen without evidence of complication. May need outpatient follow up with GI. Unclear if this is also due to Lymphoma. # Leukocytosis: Possibly multifactorial in setting of Lymphoma and possible UTI. Patient does not appears septic/toxic. Covering for possible UTI upon discharge. Plan - Discharge Medications Prescriptions: Cefuroxime Axetil [Ceftin] 250 mg PO BID 7 Days #14 tab Pantoprazole [Protonix] 40 mg PO DAILY 30 Days #30 tab Benzonatate [Tessalon] 200 mg PO TID 10 Days #30 cap Home Medications: Medication Instructions Recorded Confirmed Type Acetaminophen [Tylenol Regular 650 mg PO Q4H PRN tab 05/15/20 Rx Strength] Benzonatate [Tessalon] 200 mg PO TID 10 Days #30 cap 05/15/20 Rx Cefuroxime Axetil [Ceftin] 250 mg PO BID 7 Days #14 tab 05/15/20 Rx Pantoprazole [Protonix] 40 mg PO DAILY 30 Days #30 tab 05/15/20 Rx Allergies: No Known Allergies Allergy (Verified 05/07/20 02:39) - Discharge Instructions Discharge Instructions:: follow up with [facility] call the oncology clinic if unable to make appointment Activity:: Activity as Tolerated Nourishment:: Low Sodium Diet - Follow up Plan Referrals: Baljeet Sosa MD [Active] - Porsha Sandoval PA [Primary Care Provider] - Paty Amos MD [Active] - Disposition: HOME Quality - Care Measures CORE MEASURES:: N/A
== END 2020-05-15 09:27 | disposition home or self-care (01) | DRG 841 ==
LOC: ERS 20:38 → SJJU 05-14 00:52
PROVIDERS: ADMIT Internal Medicine; ATTEND Internal Medicine
DX: C81.10 Nodular sclerosis Hodgkin lymphoma, unspecified site (principal); N39.0 Urinary tract infection, site not specified; J98.11 Atelectasis; Z68.42 Body mass index [BMI] 45.0-49.9, adult; K21.9 Gastro-esophageal reflux disease without esophagitis; E87.6 Hypokalemia; R59.0 Localized enlarged lymph nodes; E66.01 Morbid (severe) obesity due to excess calories; R74.01 Elevation of levels of liver transaminase levels; D64.9 Anemia, unspecified; Z90.49 Acquired absence of other specified parts of digestive tract
CPT/HCPCS: 36415; 71045; 74177; 80053; 81003; 81015; 83605; 85025; 87040; 87086; 93005; 96365; 96375; C9113; J2405; J2543; J3480; J3490; Q9967; S0028

== ENCOUNTER 2020-07-15 11:28 | Outpatient (CLI) | payer OTHER ==
--- NOTE | 2020-07-15 15:57 | PET ---
Nuclear medicine FDG PET/CT: (Positron emission tomography and computed tomography) DATE: 07/15/2020 HISTORY: 24-year-old male with nodular sclerosis Hodgkin's lymphoma, lymph nodes of head, face and neck. ICD- 10 C 81.11. Evaluate response to treatment. COMPARISON: 04/29/2020 TECHNIQUE: IV injection of F-18 fluorodeoxyglucose (FDG) dose: 12.7 mCi. PET scan and attenuation correction CT performed from skull base to proximal thighs. PET scan and attenuation correction CT thinner slices performed through head and neck. FINDINGS: SUV (standard uptake values) numbers given are maximum SUVs. QCLR used. There continues to be multiple enlarged multilevel right enlarged cervical lymph nodes and bilateral supraclavicular enlarged lymph nodes. Most or all of these have decreased in size, and the degree of uptake has decreased for all. Currently, the left level 1, 2, and 3 lymph nodes are not significantly enlarged. Large number of significantly enlarged right-sided cervical lymph nodes levels 2, 3, 4, and 5, remain . Some examples: Abutting the tail of the right parotid gland and abutting the superior anterior lateral surface of ri ght sternocleidomastoid muscle: Previously 2.7 x 2.1 cm, with SUV 19.5. Currently 1.7 x 1.8 cm, with SUV 2.5. Slightly inferior to that, another lateral superficial node previously 1.8 x 2 cm with SUV of 19.4. Currently 0.9 x 1.3 cm with SUV of 2.4. Right level 2A node: Previously 1.4 x 1.3 cm with SUV of 15.0 Currently 1.1 x 1 cm with SUV of 2.5. Right level 5 node: Previously 3.5 x 2.1 cm with SUV of 9.9. Currently 2.6 x 1.7 cm with SUV of 2.1, below threshold. Right far lateral supraclavicular level 5 node. Previously 2.4 x 2.5 cm with SUV of 9.8. Currently 1.8 x 1.7 cm with SUV of 1.8, not hypermetabolic. Left level 5A node. Previously 1 x 1 cm with SUV of 4.8. Currently 0.8 x 0.7 cm with SUV 1.0, not hypermetabolic. Left level 5B supraclavicular node. Previously 3 x 1.8 cm with SUV of 8.1. Currently 1.5 x 1.3 cm with SUV of 1.4, not hypermetabolic. There continues to be multiple pathologically enlarged right axillary lymph nodes, but they have decr eased in size. Some examples: The largest, most lateral right axillary lymph node: Previously 5.9 x 3.6 cm with SUV of 20.5 Currently 3.3 x 3.1 cm with SUV of 3.0. Right mediastinal lymph node between SVC and right mainstem bronchus: Previously 2 x 1.5 cm with SUV 17.2. Currently 1.2 x 0.9 cm with SUV 2.1, not hypermetabolic. Currently none of the mediastinal lymph or hilar nodes are hypermetabolic. No hypermetabolic activity in the abdominal cavity or pelvic cavity. Specifically no splenomegaly or abnormally high splenic uptake. Liver uptake: SUV 3.8 Mediastinal blood pool uptake: SUV 2.2 IMPRESSION: 1) Deauville score 3. [place] stage II. 2) complete response to therapy according to Deauville criteria. 3) interval decrease in sizes of the very large number of enlarged cervical lymph nodes.. Except for left supraclavicular lymphadenopathy, there are few or no enlarged left cervical lymph nodes. Large number of enlarged right cervical lymph nodes remain, although smaller in size. 4) neural decrease in sizes of the right axillary lymph nodes. Abnormally large axillary nodes remain . 5) currently no hypermetabolic mediastinal or hilar lymphadenopathy.
== END 2020-07-15 11:29 | disposition home or self-care (01) ==
LOC: PET 11:28
PROVIDERS: ATTEND Internal Medicine Hematology & Oncology
DX: C81.11 Nodular sclerosis Hodgkin lymphoma, lymph nodes of head, face, and neck (principal); R59.0 Localized enlarged lymph nodes
CPT/HCPCS: 78815; A9552

== ENCOUNTER 2020-11-11 07:30 | Outpatient (CLI) | payer OTHER | END 2020-11-11 07:31 | disposition home or self-care (01) | LOC: PET 07:30 | PROVIDERS: ATTEND Internal Medicine Hematology & Oncology | DX: C81.10 Nodular sclerosis Hodgkin lymphoma, unspecified site (principal) | CPT/HCPCS: 78815; A9552 ==

== ENCOUNTER 2021-07-23 08:17 | Outpatient (CLI) | payer OTHER | END 2021-07-23 08:18 | disposition home or self-care (01) | LOC: CT 08:17 | PROVIDERS: ATTEND Internal Medicine Hematology & Oncology | DX: C81.11 Nodular sclerosis Hodgkin lymphoma, lymph nodes of head, face, and neck (principal) | CPT/HCPCS: 71260; 74177 ==

== ENCOUNTER 2021-12-11 21:16 | Emergency (ER) | payer OTHER, SELFPAY ==
[2021-12-11 21:56] LABS: Bilirubin Negative (Negative); Blood, Urine Negative (Negative); Clarity Extra Turbid (Clear); Glucose, Urine (Dipstick) Normal (Negative); Ketone, Urine Negative (Negative); Leukocyte Negative Leu/uL (Negative); Nitrite Negative (Negative); Protein, Urine (Dipstick) 10 mg/dL (Neg-Trace); Specific Gravity, Urine 1.024 (1.002-1.036); Urobilinogen Normal mg/dL (Less than 2)
[2021-12-11 22:05] LABS: Amphetamine Not Detected (NotDetected); Barbiturates Screen Not Detected (NotDetected); Benzodiazepine Screen Not Detected (NotDetected); Cocaine Metabolite Screen Not Detected (NotDetected); Methadone Not Detected (NotDetected); Methamphetamine Not Detected (NotDetected); Opiate Screen Not Detected (NotDetected); Oxycodone Screen Not Detected (NotDetected); Phencyclidine (PCP) Not Detected (NotDetected); THC/Cannabinoid Screen Detected (NotDetected); Tricyclic Screen Not Detected (NotDetected)
[2021-12-11 22:30] LABS: #Eosinphils 0.4 thou/uL (0.0-0.7); #Lymphocytes 1.3 thou/uL (1.20-3.40); #Neutrophils 7.5 thou/uL (1.40-6.50); %Basophils 0.2 % (0.0-1.0); %Eosinophils 4.1 % (0.0-10.0); %Lymphocytes 12.9 % (21.0-51.0); %Monocytes 9.3 % (0.0-10.0); %Neutrophils 73.5 % (42.0-75.0); Hemoglobin 14.7 g/dL (14.0-18.0); Mean Corpuscular HGB CONC 32.4 g/dL (32.0-36.0); Mean Corpuscular Hemoglobin 30.5 pg (27.0-31.0); Mean Corpuscular Volume 94.3 fL (78.0-98.0); Mean Platelet Volume 8.9 fL (7.4-10.4); Platelet Count 214 thou/uL (130-400); RBC Distribution Width 13.2 % (11.5-14.5); Red Blood Cell (RBC) Count 4.82 mill/uL (4.70-6.10); White Blood Cell (WBC) Count 10.2 thou/uL (4.8-10.8)
[2021-12-11 22:47] LABS: Acetaminophen Less than 10.0 mcg/mL (10.0-30.0); Alcohol Less than 10 mg/dL (Less than 10); Salicylate Less than 8.0 mg/dL (15.0-30.0)
[2021-12-11 22:48] LABS: ALT (SGPT) 35 U/L (8-55); AST (SGOT) 20 U/L (5-34); Albumin 4.2 g/dL (3.5-5.0); Alkaline Phosphatase 66 U/L (40-110); Anion Gap 13 mmol/L (10-20); BUN (Urea Nitrogen) 8 mg/dL (8.9-20.6); Bilirubin, Total 0.7 mg/dL (0.2-1.2); Calc. Creatinine Clearance 0 mL/min (70-130); Calcium 9.3 mg/dL (7.8-10.44); Carbon Dioxide 25 mmol/L (22-29); Chloride 106 mmol/L (98-107); Estimated GFR 124; Globulin 3.1 g/dL (2.4-3.5); Glucose 84 mg/dL (70-105); Potassium 3.8 mmol/L (3.5-5.1); Protein, Total 7.3 g/dL (6.0-8.3); Sodium 140 mmol/L (136-145)
[2021-12-11] MEDS ORDERED: Lorazepam 1 MG TAB ONE (23:37)
[2021-12-11] MEDS ORDERED: Loratadine 10 MG TAB PO SCH (23:45)
[2021-12-12 05:22] LABS: SARS-CoV-2 NAA Rapid Test Not Detected (NotDetected)
== END 2021-12-12 12:07 ==
LOC: ERS 21:16
DX: F32.A Depression, unspecified (principal); R45.851 Suicidal ideations; R21 Rash and other nonspecific skin eruption; C85.90 Non-Hodgkin lymphoma, unspecified, unspecified site; Z20.822 Contact with and (suspected) exposure to COVID-19
CPT/HCPCS: 36415; 80053; 80306; 80307; 81003; 84443; 85025; 99285; U0002

== ENCOUNTER 2022-01-08 08:05 | Outpatient (CLI) | payer BC ==
[2022-01-08] MEDS ORDERED: Iopamidol 370 76% 100 ML VIAL ONE (10:36)
== END 2022-01-08 08:06 | disposition home or self-care (01) ==
LOC: BICCT 08:05
PROVIDERS: ATTEND Internal Medicine Hematology & Oncology
DX: C81.11 Nodular sclerosis Hodgkin lymphoma, lymph nodes of head, face, and neck (principal)
CPT/HCPCS: 71260; 74177; Q9967

== ENCOUNTER 2022-06-28 07:29 | Outpatient (CLI) | payer BC | END 2022-06-28 07:30 | disposition home or self-care (01) | LOC: BICCT 07:29 | PROVIDERS: ATTEND Internal Medicine Hematology & Oncology | DX: C81.90 Hodgkin lymphoma, unspecified, unspecified site (principal); E66.9 Obesity, unspecified | CPT/HCPCS: 71260; 74177 ==